=== PATIENT | male | born 1950 | race Caucasian/White ===

== ENCOUNTER → 2016-08-29 | Outpatient (CLI) | payer BC ==
[~2016-08-29] MED LIST: ASPUNK PO; ATOR-24 PO; EZET10TA63 PO; OMEG10007 PO; TRAM-10 PO
[2016-08-29 12:55] LABS: ALT/SGPT 161 U/L (12-78); AST/SGOT 63 U/L (15-37); BLOOD UREA NITROGEN 12 mg/dl (7-18); BUN/CREATININE RATIO 10.2 (10-20); CALCIUM 9.1 mg/dl (8.5-10.1); CARBON DIOXIDE 27 mmol/L (21-32); CHLORIDE 102 mmol/L (98-107); CHOLESTEROL 119 mg/dl (0-200); GLUCOSE 117 mg/dl (70-99); POTASSIUM 3.8 mmol/L (3.5-5.1); SODIUM 139 mmol/L (136-145); TRIGLYCERIDES 118 mg/dl (0-150); VERY LOW DENSITY LIPOPROT CALC 24 mg/dl
[2016-08-29 12:57] LABS: ALB/GLOB RATIO 1.3 (0.9-2); ALKALINE PHOSPHATASE 76 U/L (45-117); CHOLESTEROL/HDL RATIO 2.1; HDL CHOLESTEROL 57 mg/dl; LDL CHOLESTEROL CALCULATED 38 mg/dl
[2016-08-29 13:30] LABS: ESTIMATED AVERAGE GLUCOSE 146 mg/dl; HA1C FLAG Normal (Normal)
== END | disposition home or self-care (01) ==
LOC: C.LABPBG 10:13
PROVIDERS: ATTEND Nurse Practitioner Family
DX: E11.9 Type 2 diabetes mellitus without complications (principal); E78.00 Pure hypercholesterolemia, unspecified; I10 Essential (primary) hypertension; R74.8 Abnormal levels of other serum enzymes; K76.0 Fatty (change of) liver, not elsewhere classified; Z87.891 Personal history of nicotine dependence

== ENCOUNTER → 2017-03-02 | Outpatient (CLI) | payer BC ==
[2017-03-02 12:20] LABS: BASO % 0.7 %; BASO ABS # 0.05 K/uL (0-0.2); COMPLETE YES; EOS % 6.7 %; HEMATOCRIT 46.9 % (42-52); IG% 0.3 %; LYMPH % 35.1 %; LYMPH ABS # 2.67 K/uL (1.2-3.4); MEAN CELL VOLUME 87.8 fL (80-100); MEAN CORPUSCULAR HEMOGLOBIN 29.2 pg (25-34); MEAN CORPUSCULAR HGB CONC 33.3 g/dl (32-36); MEAN PLATELET VOLUME 11.5 fL (7.4-10.4); MONO % 7.4 %; NEUT % 49.8 %; PLATELET COUNT 217 K/uL (130-400); RED BLOOD COUNT 5.34 M/uL (4.7-6.1); WHITE BLOOD COUNT 7.61 K/uL (4.8-10.8)
[2017-03-02 13:00] LABS: ALT/SGPT 168 U/L (12-78); AST/SGOT 55 U/L (15-37); BLOOD UREA NITROGEN 13 mg/dl (7-18); BUN/CREATININE RATIO 11.7 (10-20); CALCIUM 9.2 mg/dl (8.5-10.1); CARBON DIOXIDE 27 mmol/L (21-32); CHLORIDE 105 mmol/L (98-107); GLUCOSE 103 mg/dl (70-99); MAGNESIUM 2.1 mg/dl (1.8-2.4); POTASSIUM 3.8 mmol/L (3.5-5.1); SODIUM 139 mmol/L (136-145)
[2017-03-02 13:01] LABS: RATIO 4.6 mcg/mg (0-30.0)
[2017-03-02 13:05] LABS: ALB/GLOB RATIO 1.2 (0.9-2); ALKALINE PHOSPHATASE 70 U/L (45-117); CHOLESTEROL 150 mg/dl (0-200); CHOLESTEROL/HDL RATIO 2.9; ESTIMATED AVERAGE GLUCOSE 140 mg/dl; HA1C FLAG Normal (Normal); HDL CHOLESTEROL 52 mg/dl; LDL CHOLESTEROL CALCULATED 65 mg/dl; TRIGLYCERIDES 164 mg/dl (0-150); VERY LOW DENSITY LIPOPROT CALC 33 mg/dl
== END | disposition home or self-care (01) ==
LOC: C.LABPBG 09:12
PROVIDERS: ATTEND Nurse Practitioner Family
DX: E11.9 Type 2 diabetes mellitus without complications (principal); E78.00 Pure hypercholesterolemia, unspecified; I73.9 Peripheral vascular disease, unspecified; I70.8 Atherosclerosis of other arteries; I10 Essential (primary) hypertension; K76.0 Fatty (change of) liver, not elsewhere classified

== ENCOUNTER 2017-07-18 18:11 | Observation (INO) | payer BC ==
[~2017-07-18] VITALS: Ht 185.4 cm; Wt 100.9 kg
[2017-07-18] MEDS ORDERED: SODIUM CHLORIDE 0.9% 500ML 500 ML IV STA (19:08)
[2017-07-18] MEDS ORDERED: MoRPHine SULFATE 10 MG/ML CARP/VIAL IV STA (19:11)
[2017-07-18] MEDS ORDERED: ONDANSETRON INJ 2 MG/ML 2 ML VIAL IV STA (19:11)
[2017-07-18] MEDS ORDERED: ASPI81TA28 PO (19:24)
[2017-07-18] MEDS ORDERED: TRIA37.5 PO (19:24)
[2017-07-18] MEDS ORDERED: PSYL48.59 PO (19:24)
[2017-07-18] MEDS ORDERED: OMEG10002 PO (19:24)
[2017-07-18] MEDS ORDERED: CALC500T83 PO (19:24)
[2017-07-18] MEDS ORDERED: GLUCTAB18 PO (19:24)
[2017-07-18] MEDS ORDERED: CLOP1TAB15 PO (19:24)
[2017-07-18] MEDS ORDERED: MULT-506 PO (19:24)
[2017-07-18] MEDS ORDERED: METF-384 PO (19:24)
[2017-07-18 19:59] LABS: BASO % 0.4 %; BASO ABS # 0.04 K/uL (0-0.2); COMPLETE YES; EOS % 1.3 %; HEMATOCRIT 43.1 % (42-52); IG% 0.3 %; LYMPH % 16.9 %; LYMPH ABS # 1.84 K/uL (1.2-3.4); MEAN CELL VOLUME 86.7 fL (80-100); MEAN CORPUSCULAR HEMOGLOBIN 30.4 pg (25-34); MEAN PLATELET VOLUME 11.4 fL (7.4-10.4); MONO % 6.8 %; NEUT % 74.3 %; PLATELET COUNT 191 K/uL (130-400); RED BLOOD COUNT 4.97 M/uL (4.7-6.1)
[2017-07-18 20:13] LABS: URINE APPEARANCE CLEAR (CLEAR); URINE BILIRUBIN NEG (NEG); URINE COLOR YELLOW; URINE NITRITE NEG (NEG); URINE PH 6.5 (4.5-7.5); URINE SPECIFIC GRAVITY 1.019 (1.000-1.030); UROBILINOGEN NEG (NEG); ZZUR CULT IF INDIC CLEAN CATCH NO
[2017-07-18 20:14] LABS: MANUAL MICROSCOPIC REQUIRED? NO; REVIEW REQ? NO
[2017-07-18 20:21] LABS: BUN/CREATININE RATIO 10.8 (10-20); CALCIUM 9.5 mg/dl (8.5-10.1); CREATININE 1.34 mg/dl (0.60-1.40); POTASSIUM 4.1 mmol/L (3.5-5.1)
[2017-07-18 20:24] LABS: ALB/GLOB RATIO 1.2 (0.9-2)
--- NOTE | 2017-07-18 20:25 | DIAGNOSTIC IMAGING REPORT ---
CT OF THE ABDOMEN AND PELVIS WITHOUT CONTRAST, STONE PROTOCOL CLINICAL HISTORY: Right flank pain. COMPARISON STUDY: CT of the abdomen and pelvis October 01, 2010 and right upper quadrant ultrasound November 22, 2015. TECHNIQUE: Helical axial images of the abdomen and pelvis were obtained without IV or oral contrast according to renal stone protocol. A dose lowering technique was utilized adhering to the principles of ALARA. FINDINGS: A 5 mm mid right ureteral calculus located at the S2 level results in moderate right hydroureteronephrosis with moderate perinephric infiltration. No left ureteral calculi are identified. There are multiple nonobstructing left renal calculi. A water attenuation right renal lesion likely reflects a cyst. Evaluation of the remainder of the abdomen and pelvis is suboptimal on this unenhanced exam. Fatty infiltration of the liver is noted. The spleen, adrenal glands and pancreas are unremarkable with exception of numerous pancreatic parenchymal calcifications. There is no evidence for a bowel obstruction. Caliber and wall thickness of small and large bowel are normal. There are tiny calculi within the dependent aspect of the bladder. No lymphadenopathy is present. There are no suspicious osseous lesions. A right-sided aortofemoral graft is suboptimally assessed on this unenhanced exam. IMPRESSION: 1. 5 mm mid right ureteral calculus which results in moderate right hydroureteronephrosis with perinephric infiltration. 2. Left-sided nephrolithiasis. 3. Fatty liver. 4. Punctate bladder calculi. Electronically signed by: Sam Landon M.D. 07/18/2017 8:24 PM Dictated Date/Time: 07/18/2017 8:15 PM
[2017-07-18] MEDS ORDERED: MoRPHine SULFATE 4 MG/ML 1 ML CARP\\VIAL IV STA (20:38)
--- NOTE | 2017-07-18 20:54 | EMERGENCY ROOM VISIT NOTE ---
History First contact with patient: 18:55 Chief Complaint: FLANK PAIN Stated Complaint: SEVERE PAIN R SIDE AND BACK History of Present Illness The patient is a 66 year old male who presents to the Emergency Room via private vehicle accompanied by female with complaints of "severe pain right side and back". The patient states that this afternoon around 3 PM he developed abrupt onset of sharp pain in the right flank. He also has decreased urine output despite increasing his by mouth fluid intake. He states that his urine was dark and believes that there was blood in it. He denies vomiting but does note intermittent nausea. He rates the overall pain as an 8/10. He does have a history of kidney stones in the past. He did have hydrocodone at 4 PM without relief. Pain is better with standing. Review of Systems A complete 10-point Review of Systems was discussed with the patient, with pertinent positives and negatives listed in the History of Present Illness. All remaining Review of Systems questions can be considered negative unless otherwise specified. Past Medical/Surgical History Renal calculi, Fem artery bypass in 2010 Family History No pertinent. Social History Smoking Status: Never Smoker Pt. lives locally Current/Historical Medications Scheduled Aspirin (Aspirin Ec), 81 MG PO QAM Atorvastatin (Lipitor), 40 MG PO DAILY Calcium (Calcium), 500 MG PO DAILY Clopidogrel (Plavix), 75 MG PO DAILY Glucosamine-Chondroitin (Osteo Bi-Flex Regular Str), 1 DOSE PO DAILY Metformin Hcl (Glucophage), 1,000 MG PO BID Multivitamin (Multivitamin), 1 TAB PO DAILY [place]-3 Fatty Acids (Fish Oil), 3,000 MG PO DAILY Psyllium (Metamucil), 1 DOSE PO DAILY Tramadol (Ultram), 50 MG PO Q4-6HR PRN Triamterene/Hctz (Dyazide 37.5MG/25MG), 1 TAB PO DAILY Physical Exam Vital Signs Date Time Temp Pulse Resp B/P (MAP) Pulse Ox O2 Delivery O2 Flow Rate FiO2 07/18/17 21:23 Room Air 07/18/17 20:25 79 18 161/79 96 Room Air 07/18/17 20:25 95 Room Air 07/18/17 19:57 63 18 154/111 99 Room Air 07/18/17 18:17 36.8 86 20 160/104 99 Room Air Physical Exam VITAL SIGNS - Vital signs and nursing notes were reviewed. Stable. Hypertensive. GENERAL - 66-year-old male appearing his stated age who is in no acute distress but does appear to be experiencing pain. Communicates well with provider and answers questions appropriately. SKIN - Without rashes. HEAD - NC/AT. EYES - Sclera anicteric. EARS - No deformities of external structures noted on gross examination bilaterally. LUNGS - Chest wall symmetric without accessory muscle use, intercostals retractions, or central cyanosis. Normal vesicular breath sounds CTA B/L. No wheezes, rales, or rhonchi appreciated. CARDIAC - RRR with S1/S2. No murmur, rubs, or gallops appreciated. ABDOMEN - Abdominal contour normal without pulsations or visible masses. R CVA tenderness noted. Generalized lower abdominal tenderness R>L. No groin tenderness. Medical Decision & Procedures ER Provider Diagnostic Interpretation: CT OF THE ABDOMEN AND PELVIS WITHOUT CONTRAST, STONE PROTOCOL CLINICAL HISTORY: Right flank pain. COMPARISON STUDY: CT of the abdomen and pelvis October 01, 2010 and right upper quadrant ultrasound November 22, 2015. TECHNIQUE: Helical axial images of the abdomen and pelvis were obtained without IV or oral contrast according to renal stone protocol. A dose lowering technique was utilized adhering to the principles of ALARA. FINDINGS: A 5 mm mid right ureteral calculus located at the S2 level results in moderate right hydroureteronephrosis with moderate perinephric infiltration. No left ureteral calculi are identified. There are multiple nonobstructing left renal calculi. A water attenuation right renal lesion likely reflects a cyst. Evaluation of the remainder of the abdomen and pelvis is suboptimal on this unenhanced exam. Fatty infiltration of the liver is noted. The spleen, adrenal glands and pancreas are unremarkable with exception of numerous pancreatic parenchymal calcifications. There is no evidence for a bowel obstruction. Caliber and wall thickness of small and large bowel are normal. There are tiny calculi within the dependent aspect of the bladder. No lymphadenopathy is present. There are no suspicious osseous lesions. A right-sided aortofemoral graft is suboptimally assessed on this unenhanced exam. IMPRESSION: 1. 5 mm mid right ureteral calculus which results in moderate right hydroureteronephrosis with perinephric infiltration. 2. Left-sided nephrolithiasis. 3. Fatty liver. 4. Punctate bladder calculi. Electronically signed by: Sam Landon M.D. 07/18/2017 8:24 PM Dictated Date/Time: 07/18/2017 8:15 PM Laboratory Results 07/18/17 19:48 Red Blood Count 4.97, Mean Corpuscular Volume 86.7, Mean Corpuscular Hemoglobin 30.4, Mean Corpuscular Hemoglobin Concent 35.0, Mean Platelet Volume 11.4, Neutrophils (%) (Auto) 74.3, Lymphocytes (%) (Auto) 16.9, Monocytes (%) (Auto) 6.8, Eosinophils (%) (Auto) 1.3, Basophils (%) (Auto) 0.4, Neutrophils # (Auto) 8.11, Lymphocytes # (Auto) 1.84, Monocytes # (Auto) 0.74, Eosinophils # (Auto) 0.14, Basophils # (Auto) 0.04 07/18/17 19:48 Test 07/18/17 19:48 White Blood Count 10.90 K/uL (4.8-10.8) Red Blood Count 4.97 M/uL (4.7-6.1) Hemoglobin 15.1 g/dL (14.0-18.0) Hematocrit 43.1 % (42-52) Mean Corpuscular Volume 86.7 fL (80-100) Mean Corpuscular Hemoglobin 30.4 pg (25-34) Mean Corpuscular Hemoglobin Concent 35.0 g/dl (32-36) Platelet Count 191 K/uL (130-400) Mean Platelet Volume 11.4 fL (7.4-10.4) Neutrophils (%) (Auto) 74.3 % Lymphocytes (%) (Auto) 16.9 % Monocytes (%) (Auto) 6.8 % Eosinophils (%) (Auto) 1.3 % Basophils (%) (Auto) 0.4 % Neutrophils # (Auto) 8.11 K/uL (1.4-6.5) Lymphocytes # (Auto) 1.84 K/uL (1.2-3.4) Monocytes # (Auto) 0.74 K/uL (0.11-0.59) Eosinophils # (Auto) 0.14 K/uL (0-0.5) Basophils # (Auto) 0.04 K/uL (0-0.2) RDW Standard Deviation 40.5 fL (36.4-46.3) RDW Coefficient of Variation 12.6 % (11.5-14.5) Immature Granulocyte % (Auto) 0.3 % Immature Granulocyte # (Auto) 0.03 K/uL (0.00-0.02) Urine Color YELLOW Urine Appearance CLEAR (CLEAR) Urine pH 6.5 (4.5-7.5) Urine Specific [place] 1.019 (1.000-1.030) Urine Protein NEG (NEG) Urine Glucose (UA) NEG (NEG) Urine Ketones NEG (NEG) Urine Occult Blood 3+ (NEG) Urine Nitrite NEG (NEG) Urine Bilirubin NEG (NEG) Urine Urobilinogen NEG (NEG) Urine Leukocyte Esterase TRACE (NEG) Urine WBC (Auto) 1-5 /hpf (0-5) Urine RBC (Auto) >30 /hpf (0-4) Urine Hyaline Casts (Auto) 0 /lpf (0-5) Urine Epithelial Cells (Auto) 5-10 /lpf (0-5) Urine Bacteria (Auto) NEG (NEG) Anion Gap 8.0 mmol/L (3-11) Est Creatinine Clear Calc Drug Dose 69.5 ml/min Estimated GFR () 64.4 Estimated GFR (Non- 55.6 BUN/Creatinine Ratio 10.8 (10-20) Calcium Level 9.5 mg/dl (8.5-10.1) Magnesium Level 2.0 mg/dl (1.8-2.4) Total Bilirubin 0.4 mg/dl (0.2-1) Aspartate Amino Transf (AST/SGOT) 75 U/L (15-37) Alanine Aminotransferase (ALT/SGPT) 222 U/L (12-78) Alkaline Phosphatase 80 U/L (45-117) Total Protein 7.3 gm/dl (6.4-8.2) Albumin 4.0 gm/dl (3.4-5.0) Globulin 3.3 gm/dl (2.5-4.0) Albumin/Globulin Ratio 1.2 (0.9-2) Hepatitis C Antibody Screen NEG (NEG) Medications Administered Medications (Trade) Dose Ordered Sig/Rosi Route Start Time Stop Time Status Last Admin Dose Admin Sodium Chloride 500 ml @ 999 mls/hr Q31M STAT IV 07/18/17 19:08 07/18/17 19:39 DC 07/18/17 19:53 999 MLS/HR Morphine Sulfate (MoRPHine SULFATE INJ) 10 mg NOW STAT IV 07/18/17 19:11 07/18/17 19:12 DC 07/18/17 19:54 10 MG Ondansetron HCl (Zofran Inj) 4 mg NOW STAT IV 07/18/17 19:11 07/18/17 19:12 DC 07/18/17 19:53 4 MG Morphine Sulfate (MoRPHine SULFATE INJ) 4 mg NOW STAT IV 07/18/17 20:38 07/18/17 20:40 DC 07/18/17 20:43 4 MG Medical Decision Patient was seen and evaluated as above. He presents to us today with right flank pain. He does have a history of renal calculi. I suspect this on exam. He was given 10 mg of morphine for pain and then went to the CT scanner. This does reveal a 5 mm stone on the right side with moderate hydronephrosis and swelling of the kidney. He responded well to the morphine but did have hydrocodone prior to arrival. Urine reveals blood but no evidence of infection. Minor leukocytosis. Metabolic panel reveals slight hyponatremia. Creatinine 1.34. AST and ALT elevated. Patient is aware of this and notes he has followed with a liver specialist in the past. Urine reveals 3+ occult blood. Trace leuks. Creatine 30 red blood cells. 5-10 epithelial cells. The patient at this time does still appear to be in a good deal of pain and the patient prefers to stand the hospital rather than returning home secondary to the amount of pain he has experienced. I do believe this is reasonable. Please refer to further documentation regarding his stay. In evaluation treatment this patient following differential diagnoses were entertained: Renal calculi, dissection, pyelonephritis, among others. Impression Primary Impression: Right flank pain Additional Impression: Ureteral stone with hydronephrosis Departure Information Dispostion Admitted as an inpatient Condition FAIR Referrals Brandie Vazquez DO (PCP) Patient Instructions My [facility] Problem Qualifiers
[2017-07-18 21:23] VITALS: Ht 185.4 cm; Wt 100.9 kg
[2017-07-18] MEDS ORDERED: ACETAMINOPHEN 325 MG TAB PO PRN (21:30)
[2017-07-18] MEDS ORDERED: ALUMINUM/MAGNESIUM/SIMETH (MAALOX MAX) 30 ML UDC PO PRN (21:30)
[2017-07-18] MEDS ORDERED: HYDROmorphone INJ 1 MG/ML SYR IV PRN (21:30)
[2017-07-18] MEDS ORDERED: ZOLPIDEM TARTRATE 5 MG TAB PO PRN (21:30)
[2017-07-18] MEDS ORDERED: POLYETHYLENE (MIRALAX) 17 GM PACK PO PRN (21:30)
[2017-07-18] MEDS ORDERED: ONDANSETRON INJ 2 MG/ML 2 ML VIAL IV PRN (21:30)
[2017-07-18] MEDS ORDERED: MAGNESIUM HYDROXIDE SUSP 30 ML UDC PO PRN (21:30)
--- NOTE | 2017-07-18 21:53 | History and Physical ---
History & Physical Date & Time of Service: Jul 18, 2017 at 21:38 Chief Complaint: Severe Pain R Side And Back Primary Care Physician: Brandie Vazquez DO History of Present Illness Source: patient 66 y/o M Hx HTN, HPL, DM II, LFT abnormalities, nephrolithiasis 25 yrs ago. Developed sudden onset of R flank pain this afternoon. The pain was severe and he presented to the hospital therefore. A CT abdomen/pelvis revealed a 5mm right ureteral calculus with moderate right hydroureteronephrosis and perinephric infiltration. He denies any fevers or rigors. Past Medical/Surgical History 1) Type II DM 2) HTN 3) HPL 4) Fatty liver 5) Nephrolithiasis - passed a stone spontaneously 25 yrs ago Family History Both parents in 70s owing to CAD Social History Does not smoke or drink - retired [employer] Smoking Status: Former Smoker Immunizations History of Influenza Vaccine: Yes Influenza Vaccine Date: Aug 31, 2010 History of Tetanus Vaccine?: Yes Tetanus Immunization Date: Jun 26, 2010 History of Pneumococcal: Yes Pneumococcal Date: Jun 26, 2010 History of Hepatitis B Vaccine: No Multi-Drug Resistant Organisms History of MDRO: No Allergies Coded Allergies: Lisinopril (Verified Allergy, Intermediate, "DISORIENTED", 07/18/17) Home Medications Scheduled Aspirin (Aspirin Ec), 81 MG PO QAM Atorvastatin (Lipitor), 40 MG PO DAILY Calcium (Calcium), 500 MG PO DAILY Clopidogrel (Plavix), 75 MG PO DAILY Glucosamine-Chondroitin (Osteo Bi-Flex Regular Str), 1 DOSE PO DAILY Metformin Hcl (Glucophage), 1,000 MG PO BID Multivitamin (Multivitamin), 1 TAB PO DAILY [place]-3 Fatty Acids (Fish Oil), 3,000 MG PO DAILY Psyllium (Metamucil), 1 DOSE PO DAILY Tramadol (Ultram), 50 MG PO Q4-6HR PRN Triamterene/Hctz (Dyazide 37.5MG/25MG), 1 TAB PO DAILY Review of Systems Constitutional: No fever, No chills, No sweats Eyes: No worsening of vision ENT: + hearing loss (chronic) Respiratory: No cough, No sputum, No wheezing Cardiovascular: No chest pain Abdomen: + pain, + problem reported (R flank pain) Musculoskeletal: No joint pain Genitourinary - Male: No hematuria Neurologic: No memory loss, No paralysis Psychiatric: No depression symptoms Endocrine: No fatigue Hematologic / Lymphatic: No abnormal bleeding/bruising Integumentary: No rash Allergic / Immunologic: No environmental allergies Physical Exam Vital Signs Date Time Temp Pulse Resp B/P (MAP) Pulse Ox O2 Delivery O2 Flow Rate FiO2 07/18/17 21:23 Room Air 07/18/17 20:25 79 18 161/79 96 Room Air 07/18/17 19:57 63 18 154/111 99 Room Air 07/18/17 18:17 36.8 86 20 160/104 99 Room Air General Appearance: WD/WN Head: normocephalic Eyes: normal inspection ENT: normal ENT inspection, pharynx normal Neck: supple, no JVD Respiratory/Chest: chest non-tender, lungs clear, normal breath sounds Cardiovascular: no edema, no gallop Abdomen/GI: normal bowel sounds, non tender, soft, + pertinent finding Genitourinary - Male: + pertinent finding (R flank pain) Back: normal inspection, no CVA tenderness 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, no motor/sensory deficits, alert, oriented x 3 Skin: normal color Diagnostics Laboratory Results Results Past 24 Hours Test 07/18/17 19:48 07/18/17 21:23 07/18/17 21:26 Range/Units White Blood Count 10.90 4.8-10.8 K/uL Red Blood Count 4.97 4.7-6.1 M/uL Hemoglobin 15.1 14.0-18.0 g/dL Hematocrit 43.1 42-52 % Mean Corpuscular Volume 86.7 80-100 fL Mean Corpuscular Hemoglobin 30.4 25-34 pg Mean Corpuscular Hemoglobin Concent 35.0 32-36 g/dl Platelet Count 191 130-400 K/uL Mean Platelet Volume 11.4 7.4-10.4 fL Neutrophils (%) (Auto) 74.3 % Lymphocytes (%) (Auto) 16.9 % Monocytes (%) (Auto) 6.8 % Eosinophils (%) (Auto) 1.3 % Basophils (%) (Auto) 0.4 % Neutrophils # (Auto) 8.11 1.4-6.5 K/uL Lymphocytes # (Auto) 1.84 1.2-3.4 K/uL Monocytes # (Auto) 0.74 0.11-0.59 K/uL Eosinophils # (Auto) 0.14 0-0.5 K/uL Basophils # (Auto) 0.04 0-0.2 K/uL RDW Standard Deviation 40.5 36.4-46.3 fL RDW Coefficient of Variation 12.6 11.5-14.5 % Immature Granulocyte % (Auto) 0.3 % Immature Granulocyte # (Auto) 0.03 0.00-0.02 K/uL Urine Color YELLOW Urine Appearance CLEAR CLEAR Urine pH 6.5 4.5-7.5 Urine Specific [place] 1.019 1.000-1.030 Urine Protein NEG NEG Urine Glucose (UA) NEG NEG Urine Ketones NEG NEG Urine Occult Blood 3+ NEG Urine Nitrite NEG NEG Urine Bilirubin NEG NEG Urine Urobilinogen NEG NEG Urine Leukocyte Esterase TRACE NEG Urine WBC (Auto) 1-5 0-5 /hpf Urine RBC (Auto) >30 0-4 /hpf Urine Hyaline Casts (Auto) 0 0-5 /lpf Urine Epithelial Cells (Auto) 5-10 0-5 /lpf Urine Bacteria (Auto) NEG NEG Sodium Level 134 136-145 mmol/L Potassium Level 4.1 3.5-5.1 mmol/L Chloride Level 100 98-107 mmol/L Carbon Dioxide Level 26 21-32 mmol/L Anion Gap 8.0 3-11 mmol/L Blood Urea Nitrogen 15 7-18 mg/dl Creatinine 1.34 0.60-1.40 mg/dl Est Creatinine Clear Calc Drug Dose 69.5 ml/min Estimated GFR () 64.4 Estimated GFR (Non- 55.6 BUN/Creatinine Ratio 10.8 10-20 Random Glucose 112 70-99 mg/dl Calcium Level 9.5 8.5-10.1 mg/dl Total Bilirubin 0.4 0.2-1 mg/dl Aspartate Amino Transf (AST/SGOT) 75 15-37 U/L Alanine Aminotransferase (ALT/SGPT) 222 12-78 U/L Alkaline Phosphatase 80 45-117 U/L Total Protein 7.3 6.4-8.2 gm/dl Albumin 4.0 3.4-5.0 gm/dl Globulin 3.3 2.5-4.0 gm/dl Albumin/Globulin Ratio 1.2 0.9-[address] abdomen/pelvis: 1. 5 mm mid right ureteral calculus which results in moderate right hydroureteronephrosis with perinephric infiltration. 2. Left-sided nephrolithiasis. 3. Fatty liver. 4. Punctate bladder calculi. Impression Assessment and Plan 66 y/o M Hx HTN, HPL, DM II, LFT abnormalities, nephrolithiasis 25 yrs ago. Developed sudden onset of R flank pain this afternoon. The pain was severe and he presented to the hospital therefore. A CT abdomen/pelvis revealed a 5mm right ureteral calculus with moderate right hydroureteronephrosis and perinephric infiltration. He denies any fevers or rigors. He has required a high dose of narcotics for adequate pain control. 1) Obstructing R ureteral calculus - will provide pain control and fluids pending evaluation by urology. He does not currently appear to have an infection. 2) DM - placed on SS - Metformin held 3) HTN - we have held his Diazide pending assessment for possible procedure. 4) LFT elevation - this is likely due to SELBY seen on imaging - he had been following with a liver specialist and had stopped when his LFTs returned t normal - would likely benefit from resuming follow-up in addition to diet/ exercise. 5) HPL - cont Statin Full code - SCDs pending AM assessment total time for this admit including review of labs, meds, imaging, records - discussion with pt and ER attending 35 min Level of Care Med/Surg Advanced Directives Existing Living Will: No Existing Power of Outpatient Therapist: No Resuscitation Status FULL RESUSCITATION VTE Prophylaxis VTE Risk Assessment Done? Y/N: Yes Risk Level: Low Given or contraindicated: SCD's
[2017-07-18 22:04] VITALS: O2SAT 93
[2017-07-18] MEDS ORDERED: IV FLUIDS COMPLETED PRN (22:45)
[2017-07-18] MEDS ORDERED: DEXTROSE 50% 50 ML SYR IV PRN (23:00)
[2017-07-18] MEDS ORDERED: GLUCOSE 10 TABS/TUBE PO PRN (23:00)
[2017-07-18] MEDS ORDERED: GLUCAGON FOR INJ 1 MG VIAL SQ PRN (23:00)
[2017-07-18] MEDS ORDERED: GLUCOSE 40% GEL 15 GM TUBE PO PRN (23:00)
[2017-07-18] MEDS: SODIUM CHLORIDE 0.9% 1000ML 1,000 ML IV SCH (23:31)
[2017-07-19] MEDS: INSULIN ASPART 100 UNITS/ML 3 ML PEN SC SCH ×3 (06:00→12:00)
[2017-07-19 07:56] VITALS: BP 99/64; PULSE 75; TEMP 36.5; O2SAT 95
[2017-07-19] MEDS ORDERED: ATORVASTATIN 20 MG TAB PO SCH (08:00)
[2017-07-19] MEDS ORDERED: CLOPIDOGREL BISULFATE 75 MG TAB PO SCH (08:00)
[2017-07-19] MEDS ORDERED: INFLUENZA ADMINISTRATION CHARGE ONE (08:00)
[2017-07-19] MEDS ORDERED: PSYLLIUM 58.6% PWD PACK S\\F PO SCH (08:00)
[2017-07-19] MEDS ORDERED: INFLUENZA VIRUS QUAD VACCINE 0.5 ML SYR IM. ONE (08:00)
[2017-07-19] MEDS: SODIUM CHLORIDE 0.9% 1000ML 1,000 ML IV SCH (09:22)
--- NOTE | 2017-07-19 13:18 | Urology Consultation ---
History General Date of Service: Jul 19, 2017. Chief Complaint: Stone Primary Care Physician: Brandie Vazquez, DO Pt seen a urologist before?: Yes If yes, why?: Stone a number of years ago. Passed History of Present Illness Patient presented with severe flank pain and urgency with discomfort and poor voiding and urinary issues. Radiated to groin in waves with major pain. Has since improved. Currently able to tolerate pain except for spasms when voiding which are moderate at times. Resting comfortable. Tolerating hydration. No fevers > No nausea Laboratory Labs were reviewed and are within normal limits unless listed below. Labs are available in the chart and at [facility] Problem List Medical Problems: (1) Right flank pain Status: Acute (2) Ureteral stone with hydronephrosis Status: Acute Past History diabetes, kidney stones Past Surgical History: other Additional Comments: hernia Family History Patient reports no known family medical history. Social History Hx Tobacco Use In Past Year?: No (QUIT 2 YEARS AGO) Immunizations History of Influenza Vaccine: Yes Influenza Vaccine Date: Aug 31, 2010 History of Tetanus Vaccine?: Yes Tetanus Immunization Date: Jun 26, 2010 History of Pneumococcal: Yes Pneumococcal Date: Jun 26, 2010 History of Hepatitis B Vaccine: No History of MDRO No Allergies Coded Allergies: Lisinopril (Verified Allergy, Intermediate, "DISORIENTED", 07/18/17) Medications Home Medications: Home Meds and Scripts Medications Dose Route/Sig Max Daily Dose Days Date Category Dose Instructions Osteo Bi-Flex Regular Str (Glucosamine-Chondroitin) 1 Tab Tab 1 Dose PO DAILY 07/18/17 Reported Metamucil (Psyllium) 48.57 % Pow 1 Dose PO DAILY 07/18/17 Reported Multivitamin (Multivitamins) Tab 1 Tab PO DAILY 07/18/17 Reported Calcium 500 Mg Tab 500 Mg PO DAILY 07/18/17 Reported Dyazide 37.5MG/25MG (Triamterene/HCTZ) Cap 1 Tab PO DAILY 07/18/17 Reported Plavix (Clopidogrel Bisulfate) 75 Mg Tab 75 Mg PO DAILY 07/18/17 Reported Glucophage (Metformin Hcl) 1,000 Mg Tab 1,000 Mg PO BID 07/18/17 Reported Aspirin Ec (Aspirin) 81 Mg Tab 81 Mg PO QAM 07/18/17 Reported Fish Oil ([place]-3 Fatty Acids) 1,000 Mg Cap 3,000 Mg PO DAILY 07/18/17 Reported Ultram (Tramadol HCl) 50 Mg Tab 50 Mg PO Q4-6HR PRN 09/02/10 Reported PRN PAIN Lipitor (Atorvastatin Calcium) 40 Mg Tab 40 Mg PO DAILY 08/26/10 Reported Inpatient Medications: Current Inpatient Medications Medications (Trade) Dose Ordered Sig/Rosi Route Start Time Stop Time Status Last Admin Dose Admin Acetaminophen (Tylenol Tab) 650 mg Q4H PRN PO 07/18/17 21:30 08/17/17 21:29 Al Hydrox/Mg Hydrox/Simethicone (Maalox Max Susp) 15 ml Q4H PRN PO 07/18/17 21:30 08/17/17 21:29 Magnesium Hydroxide (Milk Of Magnesia Susp) 30 ml Q6H PRN PO 07/18/17 21:30 08/17/17 21:29 Polyethylene (Miralax Powder Packet) 17 gm DAILY PRN PO 07/18/17 21:30 08/17/17 21:29 Zolpidem Tartrate (Ambien Tab) 5 mg HSZ PRN PO 07/18/17 21:30 08/17/17 21:29 Ondansetron HCl (Zofran Inj) 4 mg Q6H PRN IV 07/18/17 21:30 08/17/17 21:29 Atorvastatin Calcium (Lipitor Tab) 40 mg DAILY PO 07/19/17 08:00 08/18/17 08:59 07/19/17 09:23 40 MG Clopidogrel Bisulfate (plAVix TAB) 75 mg DAILY PO 07/19/17 08:00 08/18/17 08:59 07/19/17 09:23 75 MG Psyllium Hydrophilic Mucilloid (Metamucil Powder) 1 pkt DAILY PO 07/19/17 08:00 08/18/17 08:59 Sodium Chloride 1,000 ml @ 100 mls/hr Q10H IV 07/18/17 21:30 07/19/17 17:29 07/19/17 09:22 100 MLS/HR Hydromorphone HCl (Dilaudid Inj) 1 mg Q3H PRN IV 07/18/17 21:30 08/01/17 21:29 Insulin Aspart (novoLOG ASPART) SLIDING SCALE G... Q6 SC 07/19/17 00:00 08/18/17 00:00 Miscellaneous (Iv Fluids Completed) 1 ea PRN PRN N/A 07/18/17 22:45 07/18/18 22:44 Glucose (Glucose 40% Gel) 15-30 GRAMS 15 GRAMS... UD PRN PO 07/18/17 23:00 08/17/17 22:59 Glucose (Glucose Chew Tab) 4-8 Tablets 4 Tabl... UD PRN PO 07/18/17 23:00 08/17/17 22:59 Dextrose (Dextrose 50% 50ML Syringe) 25-50ML OF 50% DW IV FOR... UD PRN IV 07/18/17 23:00 08/17/17 22:59 Glucagon (Glucagon Inj) 1 mg UD PRN SQ 07/18/17 23:00 08/17/17 22:59 Review of Systems Review of Systems All Other Systems: Reviewed and Negative Additional Comments: All reviewed. Pertienent positives and negatives in HPI Physical Exam Vital Signs: Vital Signs Past 12 Hours Date Time Temp Pulse Resp B/P (MAP) Pulse Ox O2 Delivery O2 Flow Rate FiO2 07/19/17 08:00 Room Air 07/19/17 07:56 36.5 75 20 99/64 (29) 95 Physical Exam: General Appearance: WD/WN, no apparent distress Eyes: bilateral eyes normal inspection ENT: normal ENT inspection Neck: supple, no JVD Respiratory/Chest: no respiratory distress, no accessory muscle use Cardiovascular: regular rate, rhythm Gastrointestinal: Abdomen: normal abdomen Bladder: normal bladder Renal: normal renal Extremities: normal range of motion, non-tender, normal inspection, no pedal edema, no calf tenderness 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 Ureteral Stone 2. LUTS 3. Nephrolithaisis Plan to continue maximum expulsion therapy after discussing with patient. Will order diet. Will need flomax, toradol, pyridium, and pain meds for home and plan to wait 1-2 weeks to see if able to pass. Call if any fevers or other problems. Continue to hydrate regularly. Will monitor. If unable to pass, may need stent. Otherwise continue pain control and conservative management.
[2017-07-19 15:11] VITALS: BP 118/70; PULSE 80; TEMP 36.6; O2SAT 92
[2017-07-19] MEDS ORDERED: TAMS0.4C38 PO ×2 (15:15→15:33)
[2017-07-19] MEDS ORDERED: PHEN-775 PO ×2 (15:17→15:33)
[2017-07-19] MEDS ORDERED: KETO10TA PO ×2 (15:18→15:33)
[2017-07-19] MEDS ORDERED: TRAM-10 PO (15:22)
--- NOTE | 2017-07-19 15:25 | Discharge Instructions ---
Discharge Instructions Date of Service Jul 19, 2017. Admission Reason for Admission: Ureteral Stone With Hydronephrosis Discharge Discharge Diagnosis / Problem: R reteral stone with hydronephrosis Discharge Goals Goal(s): Decrease discomfort, Improve function Activity Recommendations Activity Limitations: resume your previous activity . Instructions / Follow-Up Instructions / Follow-Up 1. Ureteral Stone 2. Nephrolithaisis Plan to continue maximum expulsion therapy after discussing with patient. Will order diet. Will need flomax, toradol, pyridium, and pain meds for home and plan to wait 1- 2 weeks to see if able to pass. Call if any fevers or other problems. Continue to hydrate regularly. Will monitor. If unable to pass, may need stent. Otherwise continue pain control and conservative management. Current Hospital Diet Patient's current hospital diet: AHA Diet (Heart Healthy) Discharge Diet Recommended Diet: AHA Diet (Heart Healthy) Pending Studies Studies pending at discharge: no Medical Emergencies . Who to Call and When: Medical Emergencies: If at any time you feel your situation is an emergency, please call 911 immediately. . Non-Emergent Contact Non-Emergency issues call your: Primary Care Provider Call Non-Emergent contact if: your pain is not controlled . . "Provider Documentation" section prepared by Kwan Mccann. . VTE Core Measure Inpt VTE Proph given/why not?: SCD's
--- NOTE | 2017-07-19 15:26 | Discharge Summary ---
Discharge Summary Date of Service Jul 19, 2017. Discharge Summary Admission Date: Jul 18, 2017 at 21:25 Discharge Date: Jul 19, 2017 Immunizations: Have You Had Influenza Vaccine: Yes Influenza Vaccine Date: Aug 31, 2010 History of Tetanus Vaccine?: Yes Tetanus Immunization Date: Jun 26, 2010 History of Pneumococcal: Yes Pneumococcal Date: Jun 26, 2010 History of Hepatitis B Vaccine: No Hospital Course This includes examination of the patient, discharge planning, medication reconciliation, and communication with other providers. Discharge Instructions Please refer to the electronic Patient Visit Report (Discharge Instructions) for additional information.
[2017-07-19 15:47] VITALS: BP 118/70; PULSE 80; TEMP 36.6; O2SAT 92
== END 2017-07-19 16:20 | disposition home or self-care (01) ==
LOC: C.EDB 18:12 → C.4E 21:25 → ENRESERV 21:51
PROVIDERS: ADMIT Internal Medicine; ATTEND Internal Medicine
DX: N13.2 Hydronephrosis with renal and ureteral calculous obstruction (principal); E11.9 Type 2 diabetes mellitus without complications; Z87.891 Personal history of nicotine dependence; Z79.82 Long term (current) use of aspirin; Z79.84 Long term (current) use of oral hypoglycemic drugs; Z79.899 Other long term (current) drug therapy

== ENCOUNTER → 2017-08-25 | Outpatient (CLI) | payer OTHER ==
[~2017-08-25] MED LIST changes: +ASPI81TA28 PO; -ASPUNK PO; +CALC500T83 PO; +CLOP1TAB15 PO; -EZET10TA63 PO; +GLUCTAB18 PO; +KETO10TA PO; +METF-384 PO; +MULT-506 PO; +OMEG10002 PO; -OMEG10007 PO; +PHEN-775 PO; +PSYL48.59 PO; +TAMS0.4C38 PO; +TRIA37.5 PO
--- NOTE | 2017-08-25 14:50 | DIAGNOSTIC IMAGING REPORT ---
KUB HISTORY: Kidney stones. COMPARISON: KUB 10/14/2010. Abdomen and pelvis CT 07/18/2017. FINDINGS: The bowel gas pattern is unremarkable. There are no dilated loops of small bowel to suggest an obstruction. Multiple left renal calculi with the largest measuring 5 mm. No right renal calculi. There is a 4 mm calcification within the right deep pelvis which likely resides within the ureterovesical junction. Remaining calcifications in the deep pelvis are stable and are consistent with phleboliths. No pneumoperitoneum or pneumatosis. IMPRESSION: 1. A 4 mm calcification within the right deep pelvis which likely resides within the ureterovesical junction. 2. Stable left-sided nephrolithiasis. Electronically signed by: Chan Salgado M.D. 08/25/2017 2:49 PM Dictated Date/Time: 08/25/2017 2:46 PM
== END | disposition home or self-care (01) ==
LOC: C.RAD 13:49
PROVIDERS: ATTEND Urology
DX: N40.1 Benign prostatic hyperplasia with lower urinary tract symptoms (principal)

== ENCOUNTER → 2017-09-04 | Outpatient (CLI) | payer OTHER ==
[2017-09-04 12:47] LABS: BASO % 0.5 %; BASO ABS # 0.04 K/uL (0-0.2); EOS % 7.1 %; EOS ABS # 0.57 K/uL (0-0.5); HEMATOCRIT 46.5 % (42-52); HEMOGLOBIN 15.9 g/dL (14.0-18.0); IG# 0.03 K/uL (0.00-0.02); LYMPH % 28.7 %; LYMPH ABS # 2.32 K/uL (1.2-3.4); MEAN CELL VOLUME 86.9 fL (80-100); MEAN CORPUSCULAR HEMOGLOBIN 29.7 pg (25-34); MEAN CORPUSCULAR HGB CONC 34.2 g/dl (32-36); MEAN PLATELET VOLUME 11.5 fL (7.4-10.4); MONO % 8.3 %; MONO ABS # 0.67 K/uL (0.11-0.59); NEUT ABS # 4.44 K/uL (1.4-6.5); PLATELET COUNT 248 K/uL (130-400); RED CELL DISTRIBUTION WIDTH CV 12.8 % (11.5-14.5); RED CELL DISTRIBUTION WIDTH SD 40.8 fL (36.4-46.3); WHITE BLOOD COUNT 8.07 K/uL (4.8-10.8)
[2017-09-04 13:19] LABS: ALBUMIN 4.1 gm/dl (3.4-5.0); ALT/SGPT 202 U/L (12-78); BLOOD UREA NITROGEN 13 mg/dl (7-18); CALCIUM 9.5 mg/dl (8.5-10.1); CARBON DIOXIDE 28 mmol/L (21-32); CHOLESTEROL 102 mg/dl (0-200); CREATININE 1.12 mg/dl (0.60-1.40); GLUCOSE 124 mg/dl (70-99); HEMOGLOBIN A1C 6.6 % (4.5-5.6); POTASSIUM 3.7 mmol/L (3.5-5.1); SODIUM 135 mmol/L (136-145)
[2017-09-04 13:22] LABS: ALKALINE PHOSPHATASE 74 U/L (45-117); AST/SGOT 79 U/L (15-37); LDL CHOLESTEROL CALCULATED 32 mg/dl; TOTAL PROTEIN 7.6 gm/dl (6.4-8.2)
== END | disposition home or self-care (01) ==
LOC: C.LABPBG 09:39
PROVIDERS: ATTEND Nurse Practitioner Family
DX: E11.9 Type 2 diabetes mellitus without complications (principal); E78.00 Pure hypercholesterolemia, unspecified; K76.0 Fatty (change of) liver, not elsewhere classified; I70.8 Atherosclerosis of other arteries; I73.9 Peripheral vascular disease, unspecified; I10 Essential (primary) hypertension

== ENCOUNTER 2019-01-26 12:26 | Observation (INO) ==
[2019-01-26] MEDS ORDERED: SODIUM CHLORIDE 0.9% 500 ML IV SCH (12:45)
[2019-01-26 13:10] LABS: Basophils # (auto) 0.04 K/uL (0-0.2); Basophils % (auto) 0.5 %; Eosinophils # (auto) 0.38 K/uL (0-0.5); Eosinophils % (auto) 5.2 %; Hematocrit (blood only) 44.6 % (42-52); Hemoglobin 15.5 g/dL (14.0-18.0); Immature Granulocytes # (auto) 0.03 K/uL (0.00-0.02); Immature Granulocytes % (auto) 0.4 %; Lymphocytes # (auto) 1.69 K/uL (1.2-3.4); Lymphocytes % (auto) 23.2 %; Mean Corpuscular Hgb Conc 34.8 g/dL (32-36); Mean Platelet Volume 10.9 fL (7.4-10.4); Monocytes # (auto) 0.69 K/uL (0.11-0.59); Monocytes % (auto) 9.5 %; Neutrophils # (auto) 4.45 K/uL (1.4-6.5); Neutrophils % (auto) 61.2 %; Platelet Count 204 K/uL (130-400); RDW Coefficient of Variation 12.5 % (11.5-14.5); RDW Standard Deviation 38.8 fL (36.4-46.3); Red Blood Count 5.25 M/uL (4.7-6.1); White Blood Count 7.28 K/uL (4.8-10.8)
--- NOTE | 2019-01-26 13:22 | XRay Report ---
XR chest 1V portable CLINICAL HISTORY: weakness COMPARISON STUDY: No previous studies for comparison. FINDINGS: The bones soft tissues and hemidiaphragms are normal. The cardiomediastinal silhouette is n ormal. The lungs are clear. The pulmonary vasculature is normal. IMPRESSION: Negative chest. The above report was generated using voice recognition software. It may contain grammatical, syntax or spelling errors. Electronically signed by: Osiel Morris M.D. 01/26/2019 1:21 PM
[2019-01-26 13:28] LABS: Alanine Aminotransferase 190 U/L (12-78); Albumin Level 3.9 gm/dl (3.4-5.0); Aspartate Aminotransferase 62 U/L (15-37); BUN Creatinine Ratio 12.8 (10-20); Blood Urea Nitrogen 14 mg/dl (7-18); Calcium 9.6 mg/dl (8.5-10.1); Carbon Dioxide 29 mmol/L (21-32); Chloride 101 mmol/L (98-107); Creatinine Clr Calc Pharmacy 80.4 ml/min; Est GFR (African American) 78.1; Est GFR (Non-African American) 67.4; Glucose 145 mg/dl (70-99); Potassium 3.6 mmol/L (3.5-5.1); Sodium 136 mmol/L (136-145)
--- NOTE | 2019-01-26 13:31 | Emergency Department Note ---
Entered by Flora Spence acting as a scribe for Joaquin Swain MD History of Present Illness General Chief complaint: Arrhythmia/Palpitations Stated complaint: IRREGULAR HEART BEAT Time Seen by Provider: 01/26/19 12:34 Source: patient History of Present Illness Onset (ago): hour(s) (a few hours ago) Location: chest (Arrythmia) Severity: similar to prior episodes Pain Consistency: + other (Persistent) Quality: + other (Arrythmia) Exacerbated By: + medication (Augmentin) and + movement Associated symptoms: + nausea/vomiting (Positive nausea. Negative vomiting.), + shortness of breath, + weakness and + other (Dizziness); no chest pain and no fever/chills The patient is a 68 year old male presenting to the Emergency Department complaining of persistent arrhythmia starting a few hours ago. The patient reports that he was at a follow up appointment with his [facility] where he had an EKG done. He explains that there were changes on his EKG and he was then referred to the ED. He states that he feels weak and fatigued. He notes that he has been experiencing intermittent shortness of breath and nausea. He adds that when he exerts himself he gets dizzy. The patient reports that he has experienced these symptoms before, as he came to the ED 5 days ago and was diagnosed with Vertigo. He states that he was prescribed Augmentin and Meclizine and has been taking the medications since with the exception of today. He explains that he did not feel fatigued before he started taking the Augmentin. The patient denies chest pain, cough, fever, chills and any history of lung disease. Home Medications Home Medications Medication Instructions Recorded Confirmed Type aspirin [Aspirin Low Dose] 81 mg PO QAM 06/03/18 01/26/19 History atorvastatin 40 mg PO QAM 06/03/18 01/26/19 History calcium carbonate [Calcium 500] 500 mg PO QPM 06/03/18 01/26/19 History calcium citrate-vitamin D3 1 tab PO QAM 06/03/18 01/26/19 History [Citracal Regular] clopidogrel 75 mg PO QPM 06/03/18 01/26/19 History glucosamine-chondroitin [Osteo 1 tab PO QAM 06/03/18 01/26/19 History Bi-Flex] losartan 50 mg PO QPM 06/03/18 01/26/19 History metformin 1,000 mg PO BID 06/03/18 01/26/19 History multivitamin 1 tab PO QAM 06/03/18 01/26/19 History psyllium 1 tbsp PO QAM 06/03/18 01/26/19 History triamterene-hydrochlorothiazid 1 cap PO QAM 06/03/18 01/26/19 History [Dyazide] amoxicillin-pot clavulanate 1 tab PO BID 9 Days #18 tab 01/21/19 01/26/19 Rx [Augmentin] meclizine 25 mg PO TID PRN #30 tab 01/21/19 01/26/19 Rx omega 1-pmq-zec-fish oil 1,000 mg 3 cap PO QAM cap 01/26/19 01/26/19 History (120 mg-180 mg) capsule Allergies Allergy/AdvReac Type Severity Reaction Status Date / Time amlodipine [From [facility]] Allergy Intermediate legs/feet Verified 01/26/19 13:27 swelling lisinopril Allergy Intermediate "DISORIENTE Verified 01/26/19 13:27 D" Past Med/Surg History Medical History Side effect of drug (Acute) Abnormal EKG (Acute) Vertigo (Acute) Diabetes mellitus, type 2 Fatty liver disease, nonalcoholic Hearing deficit Hyperlipidemia Hypertension Kidney stones On anticoagulant therapy plavix Peripheral arterial disease Surgical History History of colonoscopy History of endarterectomy 2010 @ [facility] Left common iliac with abdominal aortic endartectomy History of removal of cyst right knee History of right inguinal hernia repair History of tooth extraction all teeth removed Family History Mother Family history of diabetes mellitus Social History Preferred Language: Nicaraguan Communication Ability: Effective Beliefs That Will Affect Care: None Current Living Situation: Spouse Feels Safe at Home: Yes Smoking Status: Former smoker Tobacco Type: cigarettes Second Hand Exposure: Yes (both parents smoked) Hx Alcohol Use: Yes Alcohol type: wine Hx Substance Use: No Review of Systems See HPI for pertinent positives & negatives. and A total of 10 systems reviewed and were otherwise negative Physical Exam Vital Signs Vital Signs - 24 hr 01/26/19 12:26 01/26/19 12:30 01/26/19 12:41 Temperature 36.6 C Temperature Source Oral Sepsis Recent Fever Within 48 Hours No Sepsis New/Unexplained Change in Mental Status No Sepsis Action Taken by Nursing No Action Required Pulse Rate 109 H Pulse Rate [Apical] Pulse Rate from SpO2 Sensor Respiratory Rate 18 Respiratory Depth Normal Blood Pressure 151/89 H Blood Pressure [Left Arm] Blood Pressure Mean 109 Blood Pressure Mean [Left Arm] Pulse Oximetry 98 94 98 Oxygen Delivery Method Room Air Room Air Room Air 01/26/19 12:49 01/26/19 13:00 01/26/19 13:37 Temperature Temperature Source Sepsis Recent Fever Within 48 Hours Sepsis New/Unexplained Change in Mental Status Sepsis Action Taken by Nursing Pulse Rate 97 H 92 H 89 Pulse Rate [Apical] Pulse Rate from SpO2 Sensor Respiratory Rate 17 17 19 Respiratory Depth Blood Pressure 129/79 Blood Pressure [Left Arm] Blood Pressure Mean 95 Blood Pressure Mean [Left Arm] Pulse Oximetry Oxygen Delivery Method 01/26/19 13:38 01/26/19 14:00 01/26/19 15:00 Temperature Temperature Source Sepsis Recent Fever Within 48 Hours Sepsis New/Unexplained Change in Mental Status Sepsis Action Taken by Nursing Pulse Rate 92 H 85 76 Pulse Rate [Apical] 75 Pulse Rate from SpO2 Sensor 86 Respiratory Rate 15 19 14 Respiratory Depth Blood Pressure 129/79 Blood Pressure [Left Arm] 128/72 Blood Pressure Mean 95 Blood Pressure Mean [Left Arm] 90 Pulse Oximetry 92 Oxygen Delivery Method Nasal CPAP 01/26/19 15:09 Temperature Temperature Source Sepsis Recent Fever Within 48 Hours Sepsis New/Unexplained Change in Mental Status Sepsis Action Taken by Nursing Pulse Rate Pulse Rate [Apical] Pulse Rate from SpO2 Sensor Respiratory Rate 18 Respiratory Depth Blood Pressure Blood Pressure [Left Arm] 131/84 Blood Pressure Mean Blood Pressure Mean [Left Arm] 99 Pulse Oximetry 96 Oxygen Delivery Method GENERAL: Patient is in no acute distress. HEENT: No acute trauma, normocephalic atraumatic, mucous membranes moist, no nasal congestion, no scleral icterus. NECK: No stridor, no adenopathy, no meningismus, trachea is midline. LUNGS: Crackles at right base with diminished breath sounds on the right. Left lung is clear. No wheezing. HEART: Tachycardic rate with regular rhythm. No murmurs. ABDOMEN: Soft, nontender, bowel sounds positive, no hernias, no peritonitis. EXTREMITIES: No cyanosis or edema, full range of motion of all the joints without pain or difficulty, no signs for acute trauma. NEUROLOGIC: Oriented x 3, no acute motor or sensory deficits, no focal weakness. No pronator drift or cerebellar dysfunction. No speech slur. SKIN: No rash, no jaundice, no diaphoresis. Course 1232: The patient was seen in the ED on 01/21/19 and evaluated by Linnette Olvera for dizziness. He was diagnosed with Vertigo and discharged with Augmentin and Meclizine. The patient was referred to the ED today. 1235: The patient was evaluated in room B11B, and a complete history and physical examination were performed. 1344: I reevaluated the patient at this time and we discussed his possible disposition. 1347: I discussed the patients case with Dr. Missy ALEJO hospitalist. He will evaluate the patient for further management. Consultations Consultation #1: I discussed the patients case with Dr. Missy ALEJO hospitalist. He will evaluate the patient for further management. Time: 13:47 Administered Medications Discontinued Medications Sodium Chloride (Nss) 500 mls @ 999 mls/hr IV .Q31M ABIEL Stop: 01/26/19 13:15 Last Infusion: 01/26/19 14:16 Dose: 0 mls/hr Documented by: [id number] Admin: 01/26/19 13:38 Dose: 999 mls/hr Documented by: [id number] Ceftriaxone Sodium 2,000 mg/ (Dextrose) 70 mls @ 100 mls/hr IV NOW STA Stop: 01/26/19 14:23 Last Infusion: 01/26/19 15:00 Dose: 0 mls/hr Documented by: [id number] Admin: 01/26/19 14:16 Dose: 100 mls/hr Documented by: [id number] Medical Decision Making Differential Diagnosis Differentials include A-Fib or A-flutter, SVT, dehydration, pneumonia, sepsis, electrolyte imbalance, anemia, vertigo, stroke and AK among others. Medical Records Attestation: I reviewed the patient's medical records. Home Medications Current Medication List: was personally reviewed by me Laboratory Data Attestation: I reviewed the patient's lab results. Result diagrams: 01/26/19 12:53 01/26/19 12:53 Lab Results 01/26/19 01/26/19 01/26/19 Range/Units 12:53 12:53 12:53 WBC 7.28 (4.8-10.8) K/uL RBC 5.25 (4.7-6.1) M/uL Hgb 15.5 (14.0-18.0) g/dL Hct 44.6 (42-52) % MCV 85.0 (80-100) fL MCH 29.5 (25-34) pg MCHC 34.8 (32-36) g/dL RDW Std Deviation 38.8 (36.4-46.3) fL RDW Coeff of Laci 12.5 (11.5-14.5) % Plt Count 204 (130-400) K/uL MPV 10.9 H (7.4-10.4) fL Immature Gran % (Auto) 0.4 % Neut % (Auto) 61.2 % Lymph % (Auto) 23.2 % [place] % (Auto) 9.5 % Eos % (Auto) 5.2 % Baso % (Auto) 0.5 % Immature Gran # (Auto) 0.03 H (0.00-0.02) K/uL Neut # (Auto) 4.45 (1.4-6.5) K/uL Lymph # (Auto) 1.69 (1.2-3.4) K/uL [place] # (Auto) 0.69 H (0.11-0.59) K/uL Eos # (Auto) 0.38 (0-0.5) K/uL Baso # (Auto) 0.04 (0-0.2) K/uL Sodium 136 (136-145) mmol/L Potassium 3.6 (3.5-5.1) mmol/L Chloride 101 (98-107) mmol/L Carbon Dioxide 29 (21-32) mmol/L Anion Gap 6.0 (3-11) BUN 14 (7-18) mg/dl Creatinine 1.13 (0.6-1.4) mg/dl Est Cr Clr Drug Dosing 80.4 ml/min Est GFR ( Amer) 78.1 Est GFR (Non-Af Amer) 67.4 BUN/Creatinine Ratio 12.8 (10-20) Glucose 145 H (70-99) mg/dl Lactate 1.7 (0.4-2.0) mmol/L Calcium 9.6 (8.5-10.1) mg/dl Magnesium 2.0 (1.8-2.4) mg/dl Total Bilirubin 0.5 (0.2-1) mg/dl AST 62 H (15-37) U/L ALT 190 H (12-78) U/L Alkaline Phosphatase 81 (45-117) U/L Troponin I < 0.015 (0-0.045) ng/ml Total Protein 7.5 (6.4-8.2) gm/dl Albumin 3.9 (3.4-5.0) gm/dl Globulin 3.6 (2.5-4.0) gm/dl Albumin/Globulin Ratio 1.1 (0.9-2) TSH 2.630 (0.300-4.500) uIu/ml Lyme Disease IgG Ab (Negative) Lyme Disease IgM Ab (Negative) 01/26/19 Range/Units 12:55 WBC (4.8-10.8) K/uL RBC (4.7-6.1) M/uL Hgb (14.0-18.0) g/dL Hct (42-52) % MCV (80-100) fL MCH (25-34) pg MCHC (32-36) g/dL RDW Std Deviation (36.4-46.3) fL RDW Coeff of Laci (11.5-14.5) % Plt Count (130-400) K/uL MPV (7.4-10.4) fL Immature Gran % (Auto) % Neut % (Auto) % Lymph % (Auto) % [place] % (Auto) % Eos % (Auto) % Baso % (Auto) % Immature Gran # (Auto) (0.00-0.02) K/uL Neut # (Auto) (1.4-6.5) K/uL Lymph # (Auto) (1.2-3.4) K/uL [place] # (Auto) (0.11-0.59) K/uL Eos # (Auto) (0-0.5) K/uL Baso # (Auto) (0-0.2) K/uL Sodium (136-145) mmol/L Potassium (3.5-5.1) mmol/L Chloride (98-107) mmol/L Carbon Dioxide (21-32) mmol/L Anion Gap (3-11) BUN (7-18) mg/dl Creatinine (0.6-1.4) mg/dl Est Cr Clr Drug Dosing ml/min Est GFR ( Amer) Est GFR (Non-Af Amer) BUN/Creatinine Ratio (10-20) Glucose (70-99) mg/dl Lactate (0.4-2.0) mmol/L Calcium (8.5-10.1) mg/dl Magnesium (1.8-2.4) mg/dl Total Bilirubin (0.2-1) mg/dl AST (15-37) U/L ALT (12-78) U/L Alkaline Phosphatase (45-117) U/L Troponin I (0-0.045) ng/ml Total Protein (6.4-8.2) gm/dl Albumin (3.4-5.0) gm/dl Globulin (2.5-4.0) gm/dl Albumin/Globulin Ratio (0.9-2) TSH (0.300-4.500) uIu/ml Lyme Disease IgG Ab Negative (Negative) Lyme Disease IgM Ab Negative (Negative) Imaging Data Radiologist's Impression: Radiology results as stated below per my review and the radiologist's interpretation: XR chest 1V portable CLINICAL HISTORY: weakness COMPARISON STUDY: No previous studies for comparison. FINDINGS: The bones soft tissues and hemidiaphragms are normal. The cardiomediastinal silhouette is normal. The lungs are clear. The pulmonary vasculature is normal. IMPRESSION: Negative chest. The above report was generated using voice recognition software. It may contain grammatical, syntax or spelling errors. Electronically signed by: Osiel Morris M.D. 01/26/2019 1:21 PM ECG Data Attestation: I personally reviewed and interpreted this ECG as follows: Indication: SOB/dyspnea and weakness Rate (beats per minute): 98 Rhythm: normal sinus Findings: + other (T wave flattening.) and + ST depression (Subtle ST depression in anterior and lateral leads.) Comparison ECG Date: from (01/21/19) Change: the following changes noted (ST changes and T wave flattening are new. ) Blood Pressure Blood Pressure Findings: Normal blood pressure Blood Pressure Disposition: further management by hospitalist [facility] Narrative There is no leukocytosis or concerning anemia. No significant electrolyte abnormality or kidney failure. Lactic acid level is not elevated making sepsis less likely. There is some elevation to the AST and ALT, the patient has a history of the same. No evidence for issues with the patient's thyroid. EKG shows a sinus rhythm with some ST and T wave changes in the anterior lateral leads. Cardiac enzyme testing x1 is not consistent with acute cardiac injury. Chest x-ray does not show pneumonia or CHF. On exam, there were no focal neurologic deficits. The patient was not febrile. Patient received a 500 cc saline bolus, he was given 2 g of IV ceftriaxone for the possible sinusitis noted on his last visit. The patient presents with weakness, some shortness of breath and fatigue. He does appear to have vertigo based on history. His EKG is clearly changed compared to just a few days ago, I do not feel comfortable with discharge. I do think monitoring and a cardiology consult is warranted. I did speak to the patient and renal case manager. The on-call hospitalist was consulted. Impression & Plan Acute electrocardiogram changes, Vertigo, Weakness, Acute sinusitis Discharge Plan Visit Data Chief Complaint: Arrhythmia/Palpitations Stated Complaint: IRREGULAR HEART BEAT ED Provider: Joaquin Swain Discharge Problem: Acute electrocardiogram changes, Vertigo, Weakness, Acute sinusitis Patient Disposition: Being Evaluated by Hospitalist Forms Stand Alone Forms: My [facility] Prescriptions Prescriptions: No Action omega 9-mob-yhp-fish oil [Fish Oil] 1,000 mg (120 mg-180 mg) capsule 3 cap PO QAM RF: 0 losartan 50 mg Tablet 50 mg PO QPM RF: 0 calcium citrate-vitamin D3 [Citracal Regular] 250 mg calcium- 200 unit Tablet 1 tab PO QAM RF: 0 multivitamin Tablet 1 tab PO QAM RF: 0 atorvastatin 40 mg Tablet 40 mg PO QAM RF: 0 clopidogrel 75 mg Tablet 75 mg PO QPM RF: 0 aspirin [Aspirin Low Dose] 81 mg Tablet,Delayed Release (Dr/Ec) 81 mg PO QAM RF: 0 triamterene-hydrochlorothiazid [Dyazide] 37.5-25 mg Capsule 1 cap PO QAM RF: 0 calcium carbonate [Calcium 500] 500 mg calcium (1,250 mg) Tablet 500 mg PO QPM RF: 0 psyllium Powder 1 tbsp PO QAM RF: 0 metformin 1,000 mg Tablet 1,000 mg PO BID RF: 0 glucosamine-chondroitin [Osteo Bi-Flex] 250-200 mg Tablet 1 tab PO QAM RF: 0 amoxicillin-pot clavulanate [Augmentin] 875-125 mg tablet 1 tab PO BID 9 Days Qty: 18 RF: 0 meclizine 25 mg tablet 25 mg PO TID PRN (Reason: dizziness) Qty: 30 RF: 0 Referrals Referrals: Brandie Vazquez DO [Primary Care Provider] - Discharge Problem: Acute sinusitis Qualifiers: Sinusitis location: unspecified location Recurrence: not specified as recurrent Qualified Code(s): J01.90 - Acute sinusitis, unspecified The scribe's documentation has been prepared under my direction and personally reviewed by me in its entirety. I confirm that the note above accurately reflects all work, treatment, procedures, and medical decision making performed by me.
[2019-01-26 13:39] LABS: Albumin Globulin Ratio 1.1 (0.9-2); Alkaline Phosphatase 81 U/L (45-117); Bilirubin,Total 0.5 mg/dl (0.2-1); Globulin 3.6 gm/dl (2.5-4.0); Total Protein 7.5 gm/dl (6.4-8.2); Troponin I < 0.015 ng/ml (0-0.045)
[2019-01-26] MEDS ORDERED: cefTRIAXone SODIUM 2,000 MG in DEXTROSE 5% 50 ML IV STA (13:42)
[2019-01-26 14:44] LABS: Lyme Ab IgG w/WB Rflx Negative (Negative); Lyme Ab IgM w/WB Rflx Negative (Negative)
--- NOTE | 2019-01-26 14:57 | History & Physical Report ---
Date of Service January 26, 2019 Assessment & Plan (1) Abnormal EKG: Observation with telemetry. Obtain cardiac echo. Consult cardiology. Await Lyme titer results Present on Admission?: Yes (2) Vertigo: Brain MRI scan ordered. Consult neurology. Continue meclizine as needed Present on Admission?: Yes (3) Side effect of drug: Apparent sedation side effects from meclizine History of Present Illness Chief Complaint: Persistent vertigo, weakness, abnormal EKG Primary Care Provider: Brandie Vazquez DO 68-year-old male who has been treated with meclizine and Augmentin for the past week for vertigo. He has had sedation side effects from the Antivert. Today he was evaluated by his physician and had an EKG done because of apparent extra beats on examination. The EKG revealed new ST wave changes as compared to his previous EKG. The patient has been complaining of fatigue and weakness but denies any chest pain or actually feeling palpitations. Chest x-ray is clear. Lyme titers are pending. Troponin is normal. He will be placed in observation for further assessment with cardiac echo and brain MRI scan. Cardiology consultation and neurological consultation have been requested. Allergies Allergy/AdvReac Type Severity Reaction Status Date / Time amlodipine [From [facility]] Allergy Intermediate legs/feet Verified 01/26/19 13:27 swelling lisinopril Allergy Intermediate "DISORIENTE Verified 01/26/19 13:27 D" Home Medications Home Medications Medication Instructions Recorded Confirmed Type aspirin [Aspirin Low Dose] 81 mg PO QAM 06/03/18 01/26/19 History atorvastatin 40 mg PO QAM 06/03/18 01/26/19 History calcium carbonate [Calcium 500] 500 mg PO QPM 06/03/18 01/26/19 History calcium citrate-vitamin D3 1 tab PO QAM 06/03/18 01/26/19 History [Citracal Regular] clopidogrel 75 mg PO QPM 06/03/18 01/26/19 History glucosamine-chondroitin [Osteo 1 tab PO QAM 06/03/18 01/26/19 History Bi-Flex] losartan 50 mg PO QPM 06/03/18 01/26/19 History metformin 1,000 mg PO BID 06/03/18 01/26/19 History multivitamin 1 tab PO QAM 06/03/18 01/26/19 History psyllium 1 tbsp PO QAM 06/03/18 01/26/19 History triamterene-hydrochlorothiazid 1 cap PO QAM 06/03/18 01/26/19 History [Dyazide] amoxicillin-pot clavulanate 1 tab PO BID 9 Days #18 tab 01/21/19 01/26/19 Rx [Augmentin] meclizine 25 mg PO TID PRN #30 tab 01/21/19 01/26/19 Rx omega 7-quo-ytn-fish oil 1,000 mg 3 cap PO QAM cap 01/26/19 01/26/19 History (120 mg-180 mg) capsule Past Med/Surg History Medical History Diabetes mellitus, type 2 Fatty liver disease, nonalcoholic Hearing deficit Hyperlipidemia Hypertension Kidney stones On anticoagulant therapy plavix Peripheral arterial disease Surgical History History of colonoscopy History of endarterectomy 2010 @ [facility] Left common iliac with abdominal aortic endartectomy History of removal of cyst right knee History of right inguinal hernia repair History of tooth extraction all teeth removed Family History Mother Family history of diabetes mellitus Social History Preferred Language: Tanzanian Communication Ability: Effective Beliefs That Will Affect Care: None Current Living Situation: Spouse Feels Safe at Home: Yes Smoking Status: Former smoker Tobacco Type: cigarettes Second Hand Exposure: Ye s (both parents smoked) Hx Alcohol Use: Yes Alcohol type: wine Hx Substance Use: No Review of Systems Review of Systems: Constitutional-no fever or chills. Generalized weakness ENT-no blurred vision, no double vision, no epistaxis, no sore throat Respiratory-no cough, no wheezing, no shortness of breath Cardiac-no palpitations, no chest pain, no syncope GI-no nausea, vomiting, diarrhea, melena, hematochezia -no urinary retention, no urinary incontinence, no dysuria, no hematuria Musculoskeletal-no joint pain, no muscle tenderness Skin-no bruising, no rashes, no pruritus Neuro-generalized weakness and fatigue. Sedation Psych-no depression, no anxiety Physical Exam Physical Exam: General-mildly sedated but oriented x3, no fevers, no chills HEENT-head atraumatic and normocephalic, TMs intact bilaterally, pupils equal and reactive to light, extraocular muscles intact Neck-no lymphadenopathy or thyromegaly, trachea midline Chest-clear to auscultation percussion. No rales wheezing or rhonchi Cardiac-regular rate and rhythm, normal S1 and S2, no murmurs Abdomen-normal bowel sounds, nontender, no hepatosplenomegaly Extremities-no cyanosis, clubbing, or edema Neuro-cranial nerves II through XII intact, motor and sensory function within normal limits, strength symmetrical 5/5, no focal deficits Psych-normal affect, normal mood Results & Data Vital Signs (Past 12 Hours) Vital Signs Temp Pulse Resp BP Pulse Ox 01/26/19 13:37 89 19 129/79 01/26/19 13:00 92 H 17 01/26/19 12:49 97 H 17 01/26/19 12:41 98 01/26/19 12:30 36.6 C 109 H 18 151/89 H 94 01/26/19 12:26 98 Laboratory Results 01/26/19 12:53 01/26/19 12:53 PG Care Time/CCT Total # of Minutes Spent Total Time Spent with Patient: Total time spent is greater than 50% in coordination of care (as documented) at patient's floor/unit and/or counseling patient:
[2019-01-26] MEDS ORDERED: ALUMINUM/MAGNESIUM SUSP 30 ML UDC PO PRN (16:45)
[2019-01-26] MEDS ORDERED: MECLIZINE HCL 25 MG TAB PO PRN (16:45)
[2019-01-26] MEDS ORDERED: ONDANSETRON INJ 2 MG/ML 2 ML VIAL IV PRN (16:45)
[2019-01-26] MEDS ORDERED: ACETAMINOPHEN 325 MG TAB PO PRN (16:45)
--- NOTE | 2019-01-26 18:11 | Magnetic Resonance Report ---
MR brain wo con CLINICAL HISTORY: 68 years-old Male presenting with Persistent vertigo. TECHNIQUE: Multisequence, multiplanar MR imaging of the brain was performed without the use of intrav enous contrast. IV contrast: None. COMPARISON: Noncontrast CT head from 01/21/2019. FINDINGS: Localizer images: Unremarkable. Normal midline sagittal structures. Ventricles and sulci normal in size. No restricted diffusion or h emorrhage. Brain parenchyma normal in appearance with preserved chairez-white differentiation. No mass e ffect or midline shift. No extra-axial fluid collection. T2 skull base flow voids preserved. Bone marrow signal intensity within the calvarium within normal limits. Mucosal thickening in paranas al sinuses. IMPRESSION: 1. No acute intracranial abnormality. Electronically signed by: Ag Davis M.D. 01/26/2019 6:10 PM
[2019-01-26] MEDS: INSULIN ASPART 100 UNITS/ML 3 ML PEN SC SCH ×2 (18:30→21:11)
[2019-01-26 18:54] LABS: INR 1.1 (0.9-1.1); Partial Thromboplastin Time 27.4 Seconds (21.0-31.0); Prothrombin Time 10.8 Seconds (9.0-12.0)
[2019-01-26] MEDS: SODIUM CHLORIDE 0.9% 1000ML 1,000 ML IV SCH (18:57)
[2019-01-26] MEDS: AMOXICILLIN/CLAVULANATE 875 MG TAB PO SCH (18:58)
[2019-01-26] MEDS ORDERED: ENOXAPARIN INJ 40 MG/0.4 ML SYR SQ SCH (20:00)
[2019-01-26] MEDS ORDERED: CLOPIDOGREL BISULFATE 75 MG TAB PO SCH (21:00)
[2019-01-26] MEDS ORDERED: CALCIUM CARBONATE 500 MG CHEWABLE TAB PO SCH (21:00)
[2019-01-26] MEDS ORDERED: LOSARTAN POTASSIUM 50 MG TAB PO SCH (21:00)
[2019-01-27] MEDS: SODIUM CHLORIDE 0.9% 1000ML 1,000 ML IV SCH (07:09)
[2019-01-27] MEDS ORDERED: METFORMIN HCL 500 MG TAB PO SCH (08:00)
[2019-01-27] MEDS: AMOXICILLIN/CLAVULANATE 875 MG TAB PO SCH (08:20)
[2019-01-27] MEDS: INSULIN ASPART 100 UNITS/ML 3 ML PEN SC SCH ×2 (08:45→12:11)
[2019-01-27] MEDS ORDERED: CALCIUM 600MG + VIT D 400 IU TAB PO SCH (09:00)
[2019-01-27] MEDS ORDERED: PSYLLIUM 58.6% POWDER PACKET PO SCH (09:00)
[2019-01-27] MEDS ORDERED: ATORVASTATIN 40 MG TAB PO SCH (09:00)
[2019-01-27] MEDS ORDERED: ASPIRIN 81 MG ECTAB PO SCH (09:00)
[2019-01-27] MEDS ORDERED: TRIAMTERENE/HCTZ 37.5/25MG CAP PO SCH (09:00)
[2019-01-27] MEDS ORDERED: OMEGA-3 (PURIFIED FISH OIL) 1 GM CAP PO SCH (09:00)
[2019-01-27] MEDS ORDERED: NON-FORMULARY MEDICATION (Glucosamine-Chondroitin [Osteo Bi-Flex] 1 TAB) PO SCH (09:00)
[2019-01-27] MEDS ORDERED: MULTIVITAMIN TAB PO SCH (09:00)
--- NOTE | 2019-01-27 09:25 | Neurology Consultation ---
Date of Consultation January 27, 2019 Assessment & Plan (1) BPPV (benign paroxysmal positional vertigo): This patient's reported symptoms seem most consistent with resolving benign positional paroxysmal vertigo for which he was evaluated in our emergency department on January 21, 2019. He is currently asymptomatic and has an intact neurological examination. I was unable to elicit any nystagmus or symptoms with the Full[place]-Hallpike maneuver this morning. There is no evidence of acute or subacute infarct on the recently completed brain MRI. It would probably be worthwhile to obtain a CT angiogram of the head and neck to exclude vertebrobasilar insufficiency which may also present with vertigo but would typically have other associated brainstem symptoms such as diplopia, dysarthria, or focal weakness of the limbs. I agree with meclizine for symptomatic management of vertigo. If his symptoms were to recur it may also be worthwhile to refer him to physical therapy for Leon maneuvers. History of Present Illness Reason for Consultation: Vertigo Requesting Physician: Jair Louis MD Attending Physician: Kavon Barry MD History of Present Illness The patient is a 68-year-old male with a chief complaint of vertigo. He complains of an intense spinning sensation that began acutely 6 days ago and occurred while lying back and turning his head to the side. He reports associated nausea and vomiting at that time. He denies experiencing any diplopia, dysarthria, focal weakness, sensory loss, or drop attack. He denies experiencing any associated headache or neck pain. He was seen in the emergency department at that time and diagnosed with probable benign positional paroxysmal vertigo. He was given a prescription for meclizine and Augmentin. He reports that his symptoms have improved considerably since that time. The patient had a follow-up appointment with his primary care physician yesterday and had an EKG completed which revealed some changes including sinus tachycardia, moderate T wave abnormality, and possibly anterolateral ischemia. The patient was referred to the emergency department for further assessment. He was complaining of a feeling of weakness, fatigue, shortness of breath, and nausea. A follow-up EKG did not reveal any significant abnormalities and a cardiac enzyme was unremarkable. A general medical work-up was unrevealing although the patient was admitted for further evaluation and management. Currently, the patient reports that he is asymptomatic. He denies vertigo, nausea, vomiting, diplopia, dysarthria, dysphagia, focal weakness, sensory loss, chest pain, or palpitations. Additional details as below. Allergies Allergy/AdvReac Type Severity Reaction Status Date / Time amlodipine [From [facility]] Allergy Intermediate legs/feet Verified 01/26/19 13:27 swelling lisinopril Allergy Intermediate "DISORIENTE Verified 01/26/19 13:27 D" Home Medications Home Medications Medication Instructions Recorded Confirmed Type aspirin [Aspirin Low Dose] 81 mg PO QAM 06/03/18 01/26/19 History atorvastatin 40 mg PO QAM 06/03/18 01/26/19 History calcium carbonate [Calcium 500] 500 mg PO QPM 06/03/18 01/26/19 History calcium citrate-vitamin D3 1 tab PO QAM 06/03/18 01/26/19 History [Citracal Regular] clopidogrel 75 mg PO QPM 06/03/18 01/26/19 History glucosamine-chondroitin [Osteo 1 tab PO QAM 06/03/18 01/26/19 History Bi-Flex] losartan 50 mg PO QPM 06/03/18 01/26/19 History metformin 1,000 mg PO BID 06/03/18 01/26/19 History multivitamin 1 tab PO QAM 06/03/18 01/26/19 History psyllium 1 tbsp PO QAM 06/03/18 01/26/19 History triamterene-hydrochlorothiazid 1 cap PO QAM 06/03/18 01/26/19 History [Dyazide] amoxicillin-pot clavulanate 1 tab PO BID 9 Days #18 tab 01/21/19 01/26/19 Rx [Augmentin] meclizine 25 mg PO TID PRN #30 tab 01/21/19 01/26/19 Rx omega 3-bwf-xsk-fish oil 1,000 mg 3 cap PO QAM cap 01/26/19 01/26/19 History (120 mg-180 mg) capsule Patient History Medical History Side effect of drug (Acute) Abnormal EKG (Acute) Vertigo (Acute) Diabetes mellitus, type 2 Fatty liver disease, nonalcoholic Hearing deficit Hyperlipidemia Hypertension Kidney stones On anticoagulant therapy plavix Peripheral arterial disease Surgical History History of colonoscopy History of endarterectomy [address] [facility] Left common iliac with abdominal aortic endartectomy History of removal of cyst right knee History of right inguinal hernia repair History of tooth extraction all teeth removed Family History Mother Family history of diabetes mellitus Social History Preferred Language: Kinyarwanda Communication Ability: Effective News Camera Operator Required: No Beliefs That Will Affect Care: None Current Living Situation: Spouse Other Information That Helps Us Care for You: No Feels Safe at Home: Yes Safety Concerns: Feels Safe At This Time Smoking Status: Former smoker Tobacco Type: cigarettes Do You Dip or Chew Tobacco: No Second Hand Exposure: Yes Tobacco Cessation Education Requested by Patient: No Hx Alcohol Use: Yes Alcohol type: wine Hx Substance Use: No Review of Systems Constitutional: no fever and no chills Eyes: no blind spots and no diplopia Ear, Nose, Mouth, Throat: as per Subjective / HPI and + dizziness Respiratory: no cough and no dyspnea Cardiovascular: no chest pain and no palpitations Gastrointestinal: as per Subjective / HPI Genitourinary: no dysuria and no urinary incontinence Musculoskeletal: no myalgia Integumentary: no rash and no lesions Neurologic: as per Subjective / HPI Psychiatric: no depression and no anxiety Hematologic / Lymphatic: no easy bleeding and no easy bruising Physical Exam Physical Exam: The patient is a well-developed, well-nourished elderly male. He is alert and fully oriented. Recent and remote memory intact. Attention and concentration normal. Patient exhibits a normal spontaneous speech pattern. He is able to name objects and repeat phrases. Patient exhibits an age- appropriate fund of knowledge and normal comprehension of vocabulary. Visual joe full to confrontation. Visual acuity normal. Pupils equal round r eactive to light and accommodation. Eye movements normal. There is no nystagmus. Facial sensation intact. There is no facial weakness or facial droop. Hearing intact bilaterally. Palate elevates to midline. Shoulder shrug intact. Tongue protrudes to midline. Sensation intact to all modalities in all 4 limbs. Deep tendon reflexes intact and symmetrical for the arms and legs bilaterally. Plantar responses downgoing bilaterally. There is no dysdiadochokinesia or dysmetria grsblz-ri-juvm or jvug-ln-devq bilaterally. Ophthalmoscopic examination reveals normal-appearing optic disks and posterior segments. No papilledema or hemorrhages. Carotid pulses normal bilaterally, no bruits to auscultation. Gait and station normal. Patient exhibits normal muscle strength and tone for all 4 limbs. No atrophy. No abnormal movements observed. Manda-Hallpike negative. Results & Data Vital Signs (Past 12 Hours) Vital Signs Temp Pulse Pulse Resp BP Pulse Ox 01/27/19 07:32 87 01/27/19 06:58 36.5 C 73 16 139/87 95 01/27/19 02:27 36.4 C L 77 16 112/72 92 01/27/19 00:30 72 01/26/19 23:12 36.6 C 72 16 126/74 94 Laboratory Results Recently completed labs reviewed. WBC 7.28, hemoglobin 15.5, platelet count 204, sodium 136, potassium 3.6, BUN 14, creatinine 1.13, glucose 145, calcium 9.6, magnesium 2.0, AST 62, ALT 190, TSH 2.[address] of the head completed 01/21/2019 was negative for hemorrhage or acute process. Images and report reviewed. MRI of the brain completed 01/26/2019 was negative for acute or subacute stroke. No hydrocephalus or parenchymal disease. No acute abnormality. Images and report reviewed. An electrocardiogram completed yesterday revealed a normal sinus rhythm, nonspecific T wave abnormality, 98 bpm.
[2019-01-27] MEDS ORDERED: OPTIRAY 320 125ml IV PRN (11:43)
--- NOTE | 2019-01-27 11:53 | CT Scan Report ---
CT angio head wo/w HISTORY: 68 years-old Male vertigo, r/o VBI acute vertigo COMPARISON: CT head 01/21/2019, brain MRI 01/26/2019 TECHNIQUE: CTA of the head was obtained both with and without the use of 118 mL Optiray [address] All measurements were obtained according to NASCET criteria. A dose lowering technique was used c onsistent with the principals trinidad SANTIAGO. FINDINGS: Noncontrast study demonstrates no acute intracranial hemorrhage, midline shift, abnormal extra-axial collection, hydrocephalus or intracranial mass. No calvarial fracture. Mastoid air cells and middle e ar cavities are clear. Moderate mucosal thickening of the ethmoid air cells, maxillary and sphenoid s inuses with air-fluid levels suggestive of acute sinusitis. Soft tissues and orbits are unremarkable. The imaged bilateral internal carotid arteries appear patent. Mild calcified plaque about the caverno us and clinoid segments. The bilateral middle and right anterior cerebral arteries appear unremarkabl e. Hypoplastic left vertebral artery, likely developmental. Anterior communicating artery is patent. The imaged bilateral vertebral arteries appear patent. The basilar and bilateral posterior cerebral a rteries also appear to be patent. origin of the right posterior cerebral artery. Cerebral venou s sinuses are patent and within normal limits. IMPRESSION: 1. No acute intracranial abnormality. 2. Unremarkable CTA without aneurysm, dissection, high-grade stenosis or proximal branch occlusion. 3. Paranasal sinus disease as above. The above report was generated using voice recognition software. It may contain grammatical, syntax o r spelling errors. Electronically signed by: Nate Fitzpatrick M.D. 01/27/2019 11:52 AM
--- NOTE | 2019-01-27 11:56 | CT Scan Report ---
CT angio neck with con CLINICAL HISTORY: Vertigo. Possible vertebrobasilar insufficiency. COMPARISON STUDY: No previous studies for comparison. TECHNIQUE: CT angiography was performed from the aortic arch to the skull base. MIP imaging was perfo rmed. The patient was scanned in a dynamic helical fashion during intravenous administration of 118 c c of Optiray 320. A dose lowering technique was utilized adhering to the principles of ALARA. CT DOSE: Technique: CT angiogram of the carotid and vertebral arteries was obtained using intravenous contrast and 3-D reconstruction. NASCET criteria was utilized. Findings: There is mild apical emphysema. The right carotid revealed no evidence of aneurysm and no evidence of dissection. There is no evidenc e of hemodynamic significant stenosis. The left carotid revealed no evidence of hemodynamic significant stenosis. There is no evidence of an eurysm. There is no evidence of dissection. There is no evidence of hemodynamically significant vertebral stenosis. There is no evidence of verte bral dissection. There is pansinus disease. IMPRESSION: No evidence of hemodynamically significant carotid or vertebral artery stenosis. No evidence of disse ction. Electronically signed by: Jorge Baker M.D. 01/27/2019 11:55 AM
--- NOTE | 2019-01-27 13:43 | Discharge Summary ---
Date of Service January 27, 2019 Admission HPI Per Admitting Provider 68-year-old male who has been treated with meclizine and Augmentin for the past week for vertigo. He has had sedation side effects from the Antivert. Today he was evaluated by his physician and had an EKG done because of apparent extra beats on examination. The EKG revealed new ST wave changes as compared to his previous EKG. The patient has been complaining of fatigue and weakness but denies any chest pain or actually feeling palpitations. Chest x-ray is clear. Lyme titers are pending. Troponin is normal. He will be placed in observation for further assessment with cardiac echo and brain MRI scan. Cardiology consultation and neurological consultation have been requested. Admission Exam Per Admitting Provider General-mildly sedated but oriented x3, no fevers, no chills HEENT-head atraumatic and normocephalic, TMs intact bilaterally, pupils equal and reactive to light, extraocular muscles intact Neck-no lymphadenopathy or thyromegaly, trachea midline Chest-clear to auscultation percussion. No rales wheezing or rhonchi Cardiac-regular rate and rhythm, normal S1 and S2, no murmurs Abdomen-normal bowel sounds, nontender, no hepatosplenomegaly Extremities-no cyanosis, clubbing, or edema Neuro-cranial nerves II through XII intact, motor and sensory function within normal limits, strength symmetrical 5/5, no focal deficits Psych-normal affect, normal mood Principal Diagnosis Benign positional paroxysmal vertigo; cardiac rule out Discharge Exam Constitutional WD/WN, vitals as above Eyes EOM intact bilaterally ENMT external ear and nose normal, oropharynx normal Neck normal visual inspection and trachea midline Respiratory normal respiratory effort, lungs clear to auscultation Cardiovascular Rate/Rhythm: regular rate and regular rhythm Extremities: no pedal edema Gastrointestinal (Abdomen) Percussion/Palpation: abdomen soft; abdomen nontender, no guarding and abdomen not rigid Musculoskeletal Head/Neck/Chest: normocephalic and head atraumatic Skin no rashes, warm and dry Neurologic CN's II-XI intact bilaterally, moves all extremities and awake Psychiatric A+Ox3, euthymic affect Discharge Data Allergies Allergy/AdvReac Type Severity Reaction Status Date / Time amlodipine [From [facility]] Allergy Intermediate legs/feet Verified 01/26/19 13:27 swelling lisinopril Allergy Intermediate "DISORIENTE Verified 01/26/19 13:27 D" Consultations 01/26/19 16:45 Consult Cardiology Routine Consult Neurology Routine Ordered Studies 01/26/19 16:45 MR brain wo con Routine IMPRESSION: 1. No acute intracranial abnormality. 01/27/19 09:25 CT angio head wo/w Routine IMPRESSION: 1. No acute intracranial abnormality. 2. Unremarkable CTA without aneurysm, dissection, high-grade stenosis or proximal branch occlusion. 3. Paranasal sinus disease as above CT angio neck with con Routine IMPRESSION: No evidence of hemodynamically significant carotid or vertebral artery stenosis. No evidence of dissection. Hospital Course (1) Abnormal EKG: Nestor Guzmán is a 68 year old male with past medical history of DM, HLD, HTN, PAD who was sent to [facility] from PCP for abnormal ECG in office and subsequent admission from ED for cardiac workup. He noted to have recent ED visit for vertigo and was diagnosed with sinusitis and vertigo; was given Rx for Meclizine and Augmentin. He said he felt cloudy and was sleepy on Meclizine which he endorses he was taking scheduled and not PRN. He went to see his PCP because of ED follow up then had the abnormal ECG (showed nonspecific T-wave changes in the anterior leads) prompting being sent to ED then admission. His hospital course was unremarkable. He noted to feel better after eating adequate breakfast. Cardiology and neurology were consulted. He had negative troponin in ED and on day of discharge. ECG was unchanged from previous on 01/21. Echocardiogram notes normal left ventricular systolic function, borderline LVH, and unprofound mitral regurgitation. He did not experience any chest pain or dyspnea throughout course of illness or during admission. Neurology workup included MRI brain w/o con showed no acute intracranial abnormality; CT angio head wo/w that only showed sinus abnormalities without any vascular disease; CT angio neck with con showed No evidence of hemodynamically significant carotid or vertebral artery stenosis. No evidence of dissection. Neuro diagnosed vertigo as BPPV and was okay with continuing Meclizine. Neuro noted that if symptoms returned or continued that referral to Physical Therapy for Leon maneuvers could be of benefit. (2) BPPV (benign paroxysmal positional vertigo): resolving, as noted above, may continue with Meclizine. I discussed with patient to take PRN or try taking half a tab since he was taking scheduled and noted increase drowsiness and feeling foggy. Again, recommendation for PT referral for Leon maneuvers as outpatient if symptoms return. Total Time Total Time Spent Total Time Spent (In Minutes): 30 Total Time Includes: Examination of the Patient, Discharge Planning, Medication Reconciliation and Communication With Other Providers Discharge Plan Discharge Items Patient Disposition: Home - Self-Care Reason For Visit: ABNORMAL EKG Discharge Diagnosis: Abnormal EKG; Benign paroxysmal positional vertigo Discharge Goals: Prevent disease and Therapeutic intervention Activity: Resume your previous activity Non-emergency contact: Primary Care Provider Call non-emergency contact if: you have any medication questions and your symptoms worsen Follow-up/Referrals: Brandie Vazquez, [Primary Care Provider] - Diet: Carb Consistent or DM2 Addtl Provider Instructions: You were admitted for abnormal EKG requiring further cardiac workup to ensure there no potential life threatening events. Your ECG showed some abnormalities but this was unchanged from previous EKG performed on 01/21/19, which is reassuring. Also, lab work supported that there was no heart damage or signs of a heart attack. Your echocardiogram performed here to look at the wall motion of your heart was noted normal left ventricular systolic function, borderline Left Ventricle enlargement, and unprofound mitral regurgitation (essentially unremarkable or no signs of acute disease). Cardiology physicians were consulted during your stay and at this time concurred that there were no signs of acute/new heart disease/damage, For your Vertigo, neurology physician team was consulted and active in the evaluation of your vertigo. Neurology workup included Imaging studies included: MRI brain w/o con showing no acute intracranial abnormality; CT angio head wo/w that only showed sinus abnormalities without any vascular disease; CT angio neck with con showed No evidence of hemodynamically significant carotid or vertebral artery stenosis. No evidence of dissection. Neuro diagnosed vertigo as benign paroxysmal positional vertigo), which is simply vertigo caused by head movement/changes head positioning. Neurology was okay with continuing Meclizine, but again only take Meclizine as needed or try taking half a tablet if you are experiencing side effects of drowsiness/fogginess which can be a side effect of medication. Neuro noted that if symptoms returned or continued that referral to Physical Therapy for Leon maneuvers could be of benefit. You can discuss this with your Primary Care Doctor at hospital follow up. Please call your PCP for hospital follow up for next available appointment. Prescriptions: Continued omega 2-nsl-pke-fish oil [Fish Oil] 1,000 mg (120 mg-180 mg) capsule 3 cap PO QAM RF: 0 losartan 50 mg Tablet 50 mg PO QPM RF: 0 calcium citrate-vitamin D3 [Citracal Regular] 250 mg calcium- 200 unit Tablet 1 tab PO QAM RF: 0 multivitamin Tablet 1 tab PO QAM RF: 0 atorvastatin 40 mg Tablet 40 mg PO QAM RF: 0 clopidogrel 75 mg Tablet 75 mg PO QPM RF: 0 aspirin [Aspirin Low Dose] 81 mg Tablet,Delayed Release (Dr/Ec) 81 mg PO QAM RF: 0 triamterene-hydrochlorothiazid [Dyazide] 37.5-25 mg Capsule 1 cap PO QAM RF: 0 calcium carbonate [Calcium 500] 500 mg calcium (1,250 mg) Tablet 500 mg PO QPM RF: 0 psyllium Powder 1 tbsp PO QAM RF: 0 metformin 1,000 mg Tablet 1,000 mg PO BID RF: 0 glucosamine-chondroitin [Osteo Bi-Flex] 250-200 mg Tablet 1 tab PO QAM RF: 0 amoxicillin-pot clavulanate [Augmentin] 875-125 mg tablet 1 tab PO BID 9 Days Qty: 18 RF: 0 meclizine 25 mg tablet 25 mg PO TID PRN (Reason: dizziness) Qty: 30 RF: 0 Stand-Alone Forms: [facility] Discharge Orders: Discharge Order (Routine); Ordered 01/27/19 Ordered By: Matty Tipton Admission Data Admit Date/Time: 01/26/19 14:57 Attending Provider: Kavon Barry Admit Provider: Jair Louis Primary Care Provider: Brandie Vazquez Other Providers: Arya Jimenes ; Ryan Sarmiento ; Jhony Clark ; Sagar Espana ; Chavez Teran Jr ; Dipesh Dyer ; Khushbu Singh ; Shaista Hamilton ; Kavon Khan ; Kavon Hernandez ; Darinel Meza ; Jair Douglas ; Miesha Eduardo ; Yesica Jones ; Anthony Ingram ; Chavez Alberto III ; Faye Chen ; Piter Fernandez Service: Telemetry Other Interventions: Discharge Summary Assessment (RN) Last Done: 01/27/19 14:39 DC Date/Time DO NOT enter until pt leaves facility: 01/27/19 15:16 Supervising Physician Co-Signing Physician Notes Attending attestation Pt seen and examined in concert with Dr. Tipton. In agreement with the documented findings as noted in the resident documentation with any exceptions or additions as noted here. Minimal vertigo symptoms at present and reports no chest pain, SOB, n/v, diaphoresis, CLARKE. On examination, S1/S2 nl RRR no MCG. CTAB. Abd NT/ND BS+ve. CNII-XII grossly intact as tested. EKG abnormality w/ BPPV - neurology and cardiology consultation appreciated - negative troponin evaluation, echocardiogram as noted - CT head/neck w/o cau sative lesion. Meclizine PRN dizziness w/ half tab for decreased sedation if needed Resident Activity Tracking Resident Involvement: Resident Care Provided Care Provided: Adult Hospital Medicine
--- NOTE | 2019-01-27 14:02 | Cardiology Consultation ---
Date of Consultation January 27, 2019 Assessment & Plan (1) Abnormal EKG: The patient demonstrates nonspecific T-wave abnormality most pronounced in the anterior leads. This is essentially unchanged from an EKG done on January 21. At no time has the patient experience cardiac symptoms. No need for further evaluation at this time. (2) Essential hypertension: The patient does demonstrate left ventricle hypertrophy on his echocardiogram. Continue aggressive treatment of his blood pressure. (3) Hypercholesterolemia: Stable on atorvastatin. History of Present Illness Attending Physician: Kavon Barry MD History of Present Illness Mr. Guzmán this 68-year-old male admitted yesterday because of an abnormal EKG. This consultation was ordered to assist in his management. The patient's recent history began approximately 1 week ago when he noted significant vertigo. He was seen in the emergency room on January 21 and discharged on meclizine and Augmentin. Over the ensuing 5 days, the patient felt extremely fatigued and had little change in his symptoms. He was seen yesterday by his primary care team an EKG was obtained which showed nonspecific T-wave changes in the anterior leads. It was suggested he proceed to the emergency room for further evaluation. The patient has never experienced exertional chest pain. Although he does not follow a routine exercise program, he is vigorous on a daily basis caring for his home and property. He is able to push mow his lawn for over 1 hour. He has never experienced exertional angina pectoris or limiting dyspnea. He further denies syncope, presyncope, PND, orthopnea, palpitations, lower extremity edema, and claudication. Time currently, patient is resting comfortably in bed without complaints. Past medical and surgical history 1. Hypertension 2. Hypercholesterolemia 3. Diabetes mellitus 4. Peripheral vascular disease 5. Right fem-pop bypass-2010 6. Nephrolithiasis 7. BPH 8. Steatohepatitis 9. Colonic polyps 10. Diverticulosis 11. Right inguinal hernia repair-2001 Social history and lives with his Retired from food preparation kitchen aide at [employer] Quit tobacco use 4 years ago, 35 pack year history Rare alcohol Family history Father at 78 from complications of alcohol abuse Mother at 58 from complications of diabetes Review of systems A 10 point review of systems was undertaken and negative except for that described above. Allergies Allergy/AdvReac Type Severity Reaction Status Date / Time amlodipine [From Norvasc] Allergy Intermediate legs/feet Verified 01/26/19 13:27 swelling lisinopril Allergy Intermediate "DISORIENTE Verified 01/26/19 13:27 D" Home Medications Home Medications Medication Instructions Recorded Confirmed Type aspirin [Aspirin Low Dose] 81 mg PO QAM 06/03/18 01/26/19 History atorvastatin 40 mg PO QAM 06/03/18 01/26/19 History calcium carbonate [Calcium 500] 500 mg PO QPM 06/03/18 01/26/19 History calcium citrate-vitamin D3 1 tab PO QAM 06/03/18 01/26/19 History [Citracal Regular] clopidogrel 75 mg PO QPM 06/03/18 01/26/19 History glucosamine-chondroitin [Osteo 1 tab PO QAM 06/03/18 01/26/19 History Bi-Flex] losartan 50 mg PO QPM 06/03/18 01/26/19 History metformin 1,000 mg PO BID 06/03/18 01/26/19 History multivitamin 1 tab PO QAM 06/03/18 01/26/19 History psyllium 1 tbsp PO QAM 06/03/18 01/26/19 History triamterene-hydrochlorothiazid 1 cap PO QAM 06/03/18 01/26/19 History [Dyazide] amoxicillin-pot clavulanate 1 tab PO BID 9 Days #18 tab 01/21/19 01/26/19 Rx [Augmentin] meclizine 25 mg PO TID PRN #30 tab 01/21/19 01/26/19 Rx omega 9-vqy-kkw-fish oil 1,000 mg 3 cap PO QAM cap 01/26/19 01/26/19 History (120 mg-180 mg) capsule Patient History Medical History Side effect of drug (Acute) Abnormal EKG (Acute) Vertigo (Acute) Diabetes mellitus, type 2 Fatty liver disease, nonalcoholic Hearing deficit Hyperlipidemia Hypertension Kidney stones On anticoagulant therapy plavix Peripheral arterial disease Surgical History History of colonoscopy History of endarterectomy 2010 @ [facility] Left common iliac with abdominal aortic endartectomy History of removal of cyst right knee History of right inguinal hernia repair History of tooth extraction all teeth removed Family History Mother Family history of diabetes mellitus Social History Preferred Language: Ghanaian Communication Ability: Effective Relief Worker Required: No Beliefs That Will Affect Care: None Current Living Situation: Spouse Other Information That Helps Us Care for You: No Feels Safe at Home: Yes Safety Concerns: Feels Safe At This Time Smoking Status: Former smoker Tobacco Type: cigarettes Do You Dip or Chew Tobacco: No Second Hand Exposure: Yes Tobacco Cessation Education Requested by Patient: No Hx Alcohol Use: Yes Alcohol type: wine Hx Substance Use: No Physical Exam Physical Exam: In general this is a well-developed well-nourished white male in no acute distress. HEENT exam is negative. Neck is supple with full carotid upstrokes. There are no carotid bruits. Jugular venous pressure is flat at 90. There is no thyromegaly. Cardiovascular exam reveals a regular rhythm with a normal S1 and S2. No S3, S4, or murmurs are noted. Lungs are clear without rales, rhonchi, or wheezes. Abdomen is soft and nontender without bruits. Extremities reveal intact radial artery and posterior tibial pulses bilaterally. There is no peripheral edema. Results & Data Vital Signs (Past 12 Hours) Vital Signs Temp Pulse Pulse Resp BP Pulse Ox 01/27/19 11:25 36.4 C L 75 20 135/82 95 01/27/19 07:32 87 01/27/19 06:58 36.5 C 73 16 139/87 95 01/27/19 02:27 36.4 C L 77 16 112/72 92 Laboratory Results Laboratory Results - last 24 hr 01/26/19 01/26/19 01/26/19 12:55 12:55 16:58 PT 10.8 INR 1.1 APTT 27.4 PTT Ratio 1.0 POC Glucose 90 Troponin I Lyme Disease IgG Ab Negative Lyme Disease IgM Ab Negative 01/26/19 01/27/19 01/27/19 20:27 07:30 11:07 PT INR APTT PTT Ratio POC Glucose 125 H 119 H 123 H Troponin I Lyme Disease IgG Ab Lyme Disease IgM Ab 01/27/19 12:57 PT INR APTT PTT Ratio POC Glucose Troponin I < 0.015 Lyme Disease IgG Ab Lyme Disease IgM Ab Diagnostic Findings EKG notes normal sinus rhythm and nonspecific T-wave abnormality most pronounced in the anterior leads. This is unchanged from a tracing done earlier on the day of admission. It is essentially unchanged from an EKG done on January 21. Echocardiogram notes normal left ventricular systolic function, borderline LVH, and trivial mitral regurgitation. Chest x-ray shows no acute disease. Brain MRI scan was normal.
== END 2019-01-27 15:16 | disposition home or self-care (01) ==
LOC: 2S 12:26 → ED 12:26 → SUATTDRO 14:57 → 2S 16:30

== ENCOUNTER 2019-05-17 13:34 | Observation (INO) ==
[2019-05-17] MEDS ORDERED: FAMOTIDINE 20MG IV PUSH 20 MG/5 ML SYR IV STA (13:54)
[2019-05-17] MEDS ORDERED: SODIUM CHLORIDE 0.9% 500 ML IV SCH (14:00)
--- NOTE | 2019-05-17 14:16 | XRay Report ---
XR chest 1V portable HISTORY: Shortness of breath. COMPARISON: Chest 01/26/2019. FINDINGS: The heart is normal in size. No focal lung consolidations to suggest pneumonia. No evidence for pulmonary edema. No pleural effusions. No pneumothorax. Slight prominence of interstitial markin gs which appears unchanged. This may be chronic. IMPRESSION: No significant change compared to the prior study. No acute process. Electronically signed by: Chan Salgado M.D. 05/17/2019 2:15 PM
[2019-05-17 15:45] LABS: Hemoglobin 14.9 g/dL (14.0-18.0); Mean Corpuscular Hemoglobin 29.4 pg (25-34); Mean Corpuscular Hgb Conc 33.9 g/dL (32-36); Mean Platelet Volume 11.4 fL (7.4-10.4); Platelet Count 202 K/uL (130-400); RDW Coefficient of Variation 12.9 % (11.5-14.5); Red Blood Count 5.06 M/uL (4.7-6.1); White Blood Count 15.36 K/uL (4.8-10.8)
[2019-05-17 15:46] LABS: Albumin Level 3.5 gm/dl (3.4-5.0); BUN Creatinine Ratio 10.1 (10-20); Creatinine Clr Calc Pharmacy 78.6 ml/min; Est GFR (African American) 74.9; Est GFR (Non-African American) 64.6; Potassium 3.7 mmol/L (3.5-5.1)
[2019-05-17 15:48] LABS: Albumin Globulin Ratio 1.2 (0.9-2); Bilirubin,Total 0.3 mg/dl (0.2-1); Globulin 2.8 gm/dl (2.5-4.0); Total Protein 6.4 gm/dl (6.4-8.2)
[2019-05-17 16:10] LABS: Basophils # (auto) 0.03 K/uL (0-0.2); Basophils % (auto) 0.2 %; Eosinophils # (auto) 0.05 K/uL (0-0.5); Eosinophils % (auto) 0.3 %; Immature Granulocytes # (auto) 0.06 K/uL (0.00-0.02); Immature Granulocytes % (auto) 0.4 %; Lymphocytes # (auto) 0.83 K/uL (1.2-3.4); Lymphocytes % (auto) 5.4 %; Monocytes # (auto) 0.86 K/uL (0.11-0.59); Monocytes % (auto) 5.6 %; Neutrophils # (auto) 13.53 K/uL (1.4-6.5); Neutrophils % (auto) 88.1 %
--- NOTE | 2019-05-17 17:16 | History & Physical Report ---
Date of Service May 17, 2019 Assessment & Plan (1) Acute anaphylaxis: - Likely related to Keflex dose -- cephalosporins were added to allergy list. - CXR was negative; labs showed leukocytosis, elevated eosinophil count. - Received Epinephrine, Benadryl and Pepcid at PCP office; continue Famotidine BID. - Will continue to observe patient overnight, no further medication management required. - Converting abx to Clindamycin as noted below. (2) Angioedema: - As noted above; now resolved following treatment. (3) Ingrown right big toenail: - Prescribed Keflex by PCP, developed anaphylaxis. - Will start Clindamycin 150 mg q6hr; Probiotic daily. - Recommend follow up with podiatry for evaluation. - Warm salt water soaks and compresses for pain relief prn. (4) Type 2 diabetes mellitus: - A1C was 7.2 in November 2018. - Hold home Metformin; start SSI coverage. - Repeat A1C in the morning. (5) Peripheral vascular disease: - S/p fem-popliteal bypass graft on the right [place] [address] Oliveira. - Continue statin, aspirin and Plavix as prescribed. (6) Fatty infiltration of liver: - Encourage heart healthy diet and weight loss/exercise. (7) Hypercholesterolemia: - Continue statin & aspirin as prescribed. (8) Essential hypertension: - Continue Triamterene-HCTZ and Losartan as prescribed. (9) DVT prophylaxis: - SCDs; Lovenox daily. Dispo: Med/surg for observation status; discharge likely on 05/18/19. History of Present Illness Chief Complaint: Anaphylaxis Primary Care Provider: Brandie Vazquez DO Mr. Guzmán is a 68 y/o male with PMHx of Pre-diabetes, HTN, HLD, PAD who presented with acute anaphylaxis. Pt. states he developed right first toe swelling a few weeks ago - he has been using topical bacitracin ointment with no improvement. He was evaluated at his PCP office and prescribed a course of Keflex this morning. Pt. took dose of Keflex around 12 pm and stepped outside with his dog. He developed sneezing 5-10 minutes after taking dose of antibiotic followed by redness/swelling/itching of both arms that eventually spread to his neck. He had tongue swelling and mild shortness of breath. Pt. went directly to his PCPs office; he received Epinephrine, Benadryl and Pepcid. He was transferred to the ER via ambulance and has not required further treatment for anaphylaxis. Swelling is now improved, does have minor eyelid edema noted. Has h/o allergy to Lisinopril (confusion) and Norvasc (lower extremity edema); denies h/o antibiotic allergies. ER course: Pt. received Famotidine 20 mg IV push. CXR was negative. Labs showed a leukocytosis, otherwise negative. Will be admitted for observation status. Allergies Allergy/AdvReac Type Severity Reaction Status Date / Time cephalexin [From Keflex] Allergy Severe Anaphylaxis Verified 05/18/19 11:20 amlodipine [From Norvasc] Allergy Intermediate legs/feet Verified 05/24/19 10:23 swelling lisinopril Allergy Intermediate "DISORIENTE Verified 05/24/19 10:23 D" Home Medications Home Medications Medication Instructions Recorded Confirmed Type aspirin 81 mg tablet,delayed 81 mg PO QAM #30 tab 02/02/19 05/17/19 Rx release atorvastatin 40 mg tablet 40 mg PO QAM #30 tab 02/02/19 05/17/19 Rx calcium carbonate 500 mg calcium 500 mg PO QPM #30 tab 02/02/19 05/17/19 Rx (1,250 mg) tablet clopidogrel 75 mg tablet 75 mg PO QPM #30 tab 02/02/19 05/17/19 Rx glucosamine-chondroitin 250 mg-200 1 tab PO QAM #30 tab 02/02/19 05/17/19 Rx mg tablet metformin 1,000 mg tablet 1,000 mg PO BID #60 tab 02/02/19 05/17/19 Rx multivitamin tablet 1 tab PO QAM #30 tab 02/02/19 05/17/19 Rx triamterene 37.5 1 cap PO QAM #30 cap 02/02/19 05/17/19 Rx mg-hydrochlorothiazide 25 mg capsule losartan 50 mg tablet 50 mg PO QPM #90 tab 04/29/19 05/17/19 Rx omega 7-qmt-iup-fish oil [Fish Oil] 3 cap PO BID 05/17/19 05/17/19 History Past Med/Surg History Medical History H/O diverticulitis of colon (Resolved) Subacute pancreatitis (Resolved) Diabetes mellitus, type 2 Fatty liver disease, nonalcoholic Femoral-popliteal bypass graft occlusion, right Hearing deficit Hyperlipidemia Hypertension Kidney stones On anticoagulant therapy plavix Peripheral arterial disease Testicular hypofunction Surgical History H/O hernia repair H/O knee surgery Cyst removed from R knee. History of colonoscopy History of endarterectomy 2010 @ [facility] Left common iliac with abdominal aortic endartectomy History of removal of cyst right knee History of right inguinal hernia repair History of tooth extraction all teeth removed Family History Mother Diabetes Cardiac disorder Father Alcoholism Coronary atherosclerosis Social History Preferred Language: Mohawk Communication Ability: Effective Visual Impairment: No Limitations Hearing Ability: Normal Procurement Officer Required: No Beliefs That Will Affect Care: None marital status: Current Living Situation: Spouse current occupational status: retired Feels Safe at Home: Yes Smoking Status: Former smoker Tobacco Type: cigarettes ; Second Hand Exposure: Yes ; Hx Alcohol Use: Yes Alcohol type: beer and wine Hx Substance Use: No Childhood Exposure to Second-Hand Smoke: Yes Dental Care, Regularly: Yes Physical Activity Frequency: Does not Exercise Seatbelt Use: always Sunscreen Use: Yes Review of Systems Review of Systems: All systems reviewed & are unremarkable except as noted in HPI & below Constitutional: no fever, no chills, no fatigue, no weakness and no anorexia Eyes: + itchy eyes and + worsening vision Respiratory: + dyspnea; no cough, no dyspnea on exertion and no wheezing Cardiovascular: no chest pain, no palpitations and no edema Gastrointestinal: no abdominal pain, no nausea, no vomiting, no constipation and no diarrhea/loose stools Genitourinary: no dysuria, no difficulty urinating, no urinary frequency and no hematuria Musculoskeletal: + swelling; no back pain and no joint pain Integumentary: + erythema, + urticaria and + skin swelling Allergy / Immunological: + itchy eyes, + lip swelling, + throat swelling, + tongue swelling, + urticaria and + dyspnea Physical Exam Physical Exam: General: Resting comfortably HEENT: Bilateral upper eyelid edema noted; PERRLA with EOMI; Latimer conjunctiva, MMM. No erythema of posterior pharynx Neck: Supple and nontender Cardiac: RRR Lungs: CTA bilaterally Abdomen: Bowel normoactive X 4; Nontender to palpation Extremities: Warm. No edema present Neuro: No focal weakness Skin: No rash Results & Data Vital Signs (Past 12 Hours) Vital Signs Temp Pulse Pulse Resp BP BP Pulse Ox 05/17/19 16:45 107 H 19 118/73 94 05/17/19 16:30 110 H 17 148/75 H 93 05/17/19 16:15 107 H 17 102/59 L 92 05/17/19 16:00 98 H 105 H 14 120/54 L 120/54 L 93 05/17/19 15:45 102 H 19 102/55 L 93 05/17/19 15:30 107 H 23 101/60 92 05/17/19 15:15 101 H 5 L 107/62 95 05/17/19 15:00 103 H 13 109/73 94 05/17/19 14:45 99 H 14 115/69 96 05/17/19 14:30 98 H 13 113/71 95 05/17/19 14:28 99 H 19 123/77 95 05/17/19 14:15 100 H 9 L 123/77 96 05/17/19 14:01 98 05/17/19 14:00 101 H 14 132/80 97 05/17/19 13:53 36.8 C 103 H 15 155/80 H 98 05/17/19 13:45 103 H 22 145/80 H 98 Laboratory Results 05/17/19 05/17/19 Range/Units 15:15 15:15 WBC 15.36 H (4.8-10.8) K/uL RBC 5.06 (4.7-6.1) M/uL Hgb 14.9 (14.0-18.0) g/dL Hct 44.0 (42-52) % MCV 87.0 (80-100) fL MCH 29.4 (25-34) pg MCHC 33.9 (32-36) g/dL RDW Std Deviation 41.0 (36.4-46.3) fL RDW Coeff of Laci 12.9 (11.5-14.5) % Plt Count 202 (130-400) K/uL MPV 11.4 H (7.4-10.4) fL Immature Gran % (Auto) 0.4 % Neut % (Auto) 88.1 % Lymph % (Auto) 5.4 % Rich % (Auto) 5.6 % Eos % (Auto) 0.3 % Baso % (Auto) 0.2 % Immature Gran # (Auto) 0.06 H (0.00-0.02) K/uL Neut # (Auto) 13.53 H (1.4-6.5) K/uL Lymph # (Auto) 0.83 L (1.2-3.4) K/uL Rich # (Auto) 0.86 H (0.11-0.59) K/uL Eos # (Auto) 0.05 (0-0.5) K/uL Baso # (Auto) 0.03 (0-0.2) K/uL Sodium 136 (136-145) mmol/L Potassium 3.7 (3.5-5.1) mmol/L Chloride 103 (98-107) mmol/L Carbon Dioxide 23 (21-32) mmol/L Anion Gap 10.0 (3-11) BUN 12 (7-18) mg/dl Creatinine 1.17 (0.6-1.4) mg/dl Est Cr Clr Drug Dosing 78.6 ml/min Est GFR ( Amer) 74.9 Est GFR (Non-Af Amer) 64.6 BUN/Creatinine Ratio 10.1 (10-20) Glucose 160 H (70-99) mg/dl Calcium 9.0 (8.5-10.1) mg/dl Total Bilirubin 0.3 (0.2-1) mg/dl AST 57 H (15-37) U/L ALT 150 H (12-78) U/L Alkaline Phosphatase 80 (45-117) U/L Total Protein 6.4 (6.4-8.2) gm/dl Albumin 3.5 (3.4-5.0) gm/dl Globulin 2.8 (2.5-4.0) gm/dl Albumin/Globulin Ratio 1.2 (0.9-2) Code Status & VTE Plan Code Status FULL CODE VTE Prophylaxis Plan VTE Prophylaxis will be ordered: Yes Supervising Physician Co-Signing Physician Notes During my face to face encounter, I performed a physical examination and obtained a history on his current illness. I answered all of the patients questions and discussed the plan. I reviewed above note and agree with it. Patient will be admitted under OBS. Appears patient had an allergic reaction to his antibiotic. will monitor overnight with plan to discharge in AM. PG Care Time/CCT Total # of Minutes Spent Total Time Spent with Patient: Total time spent is greater than 50% in coordination of care (as documented) at patient's floor/unit and/or counseling patient: (1) Acute anaphylaxis Encounter type: initial encounter Qualified Code(s): T78.2XXA - Anaphylactic shock, unspecified, initial encounter (2) Angioedema Encounter type: initial encounter Qualified Code(s): T78.3XXA - Angioneurotic edema, initial encounter
[2019-05-17] MEDS ORDERED: GLUCAGON FOR INJ 1 MG VIAL SQ PRN (17:27)
[2019-05-17] MEDS ORDERED: DEXTROSE 50% 50 ML SYRINGE IV PRN (17:27)
[2019-05-17] MEDS ORDERED: CARBOHYDRATES FOR HYPOGLYCEMIA PO PRN (17:27)
[2019-05-17] MEDS ORDERED: GLUCOSE 10 TABS/TUBE PO PRN (17:27)
[2019-05-17] MEDS ORDERED: GLUCOSE 40% GEL 15 GM TUBE PO PRN (17:27)
[2019-05-17] MEDS ORDERED: ENOXAPARIN INJ 40 MG/0.4 ML SYR SQ SCH (18:00)
[2019-05-17] MEDS ORDERED: CLINDAMYCIN HCL 150 MG CAP PO SCH (18:00)
[2019-05-17] MEDS: SACCHAROMYCES BOULARDII 250 MG CAP PO SCH (18:11)
[2019-05-17] MEDS: CLINDAMYCIN HCL 150 MG CAP PO SCH ×2 (18:31→23:49)
[2019-05-17] MEDS ORDERED: PHARMACY GLYCEMIC MGMT CONSULT PRN (18:51)
--- NOTE | 2019-05-17 19:16 | Emergency Department Note ---
Entered by Justus Corado acting as a scribe for Alejandro Smith MD History of Present Illness General Chief complaint: Allergic Reaction Stated complaint: allergic reaction Source: patient and EMS History of Present Illness Provider complaint: anaphylaxis Onset (ago): hour(s) 2 Location: face, mouth and neck Severity: severe Pain Consistency: + constant Quality: + other (swelling, itching, sweaty) Exacerbated By: + medication (keflex) Associated symptoms: + denies other symptoms Treatments prior to arrival: other (Benadryl, epinephrine, and solumedrol ) The patient is a 68 y/o male with a past medical history of diabetes and high blood pressure, who presents to the emergency department for evaluation of anaphylaxis to Keflex two hours ago. The patient states that he got a new prescription at his doctors office for a right big toe infection and after he took the dose of Keflex he got hot, sweaty, swollen, and itchy all over. He stated his tongue and throat swelled up and he had some difficulty breathing. EMS notes that he went back to the doctors office where he was given Benadryl, epinephrine, and solumedrol IM prior to arrival. EMS was called and he was brought here by ambulance. The patient reports that at the time he felt like he was going to pass out though he does not currently feel that way. The patient denies any other symptoms. Currently he states his tongue is still swollen but his breathing is much better. He denies any chest pain or history of cardiac disease. Home Medications Home Medications Medication Instructions Recorded Confirmed Type aspirin 81 mg tablet,delayed 81 mg PO QAM #30 tab 02/02/19 05/17/19 Rx release atorvastatin 40 mg tablet 40 mg PO QAM #30 tab 02/02/19 05/17/19 Rx calcium carbonate 500 mg calcium 500 mg PO QPM #30 tab 02/02/19 05/17/19 Rx (1,250 mg) tablet clopidogrel 75 mg tablet 75 mg PO QPM #30 tab 02/02/19 05/17/19 Rx glucosamine-chondroitin 250 mg-200 1 tab PO QAM #30 tab 02/02/19 05/17/19 Rx mg tablet metformin 1,000 mg tablet 1,000 mg PO BID #60 tab 02/02/19 05/17/19 Rx multivitamin tablet 1 tab PO QAM #30 tab 02/02/19 05/17/19 Rx triamterene 37.5 1 cap PO QAM #30 cap 02/02/19 05/17/19 Rx mg-hydrochlorothiazide 25 mg capsule losartan 50 mg tablet 50 mg PO QPM #90 tab 04/29/19 05/17/19 Rx omega 1-byp-dbn-fish oil [Fish Oil] 3 cap PO BID 05/17/19 05/17/19 History Allergies Allergy/AdvReac Type Severity Reaction Status Date / Time cephalexin [From Keflex] Allergy Severe Anaphylaxis Verified 05/17/19 12:51 amlodipine [From Norvasc] Allergy Intermediate legs/feet Verified 05/17/19 10:59 swelling lisinopril Allergy Intermediate "DISORIENTE Verified 05/17/19 10:59 D" Past Med/Surg History Medical History H/O diverticulitis of colon (Resolved) Subacute pancreatitis (Resolved) Diabetes mellitus, type 2 Fatty liver disease, nonalcoholic Femoral-popliteal bypass graft occlusion, right Hearing deficit Hyperlipidemia Hypertension Kidney stones On anticoagulant therapy plavix Peripheral arterial disease Testicular hypofunction Surgical History H/O hernia repair H/O knee surgery Cyst removed from R knee. History of colonoscopy History of endarterectomy 2010 @ [facility] Left common iliac with abdominal aortic endartectomy History of removal of cyst right knee History of right inguinal hernia repair History of tooth extraction all teeth removed Family History Mother Diabetes Cardiac disorder Father Alcoholism Coronary atherosclerosis Social History Preferred Language: Libyan Communication Ability: Effective Visual Impairment: No Limitations Hearing Ability: Normal Acoustical Installer Required: No Beliefs That Will Affect Care: None marital status: Current Living Situation: Spouse current occupational status: retired Feels Safe at Home: Yes Smoking Status: Former smoker Tobacco Type: cigarettes ; Second Hand Exposure: Yes ; Hx Alcohol Use: Yes Alcohol type: wine Hx Substance Use: No Childhood Exposure to Second-Hand Smoke: Yes Dental Care, Regularly: Yes Physical Activity Frequency: Does not Exercise Seatbelt Use: always Sunscreen Use: Yes Review of Systems See HPI for pertinent positives & negatives. and A total of 10 systems reviewed and were otherwise negative Physical Exam Vital Signs Vital Signs - 24 hr 05/17/19 13:45 05/17/19 13:53 05/17/19 14:00 Temperature 36.8 C Temperature Source Oral Sepsis Recent Fever Within 48 Hours No Sepsis Action Taken by Nursing No Action Required Pulse Rate 103 H 103 H 101 H Pulse Rate [Apical] Pulse Rate from SpO2 Sensor 102 H 101 H 102 H Pulse Rhythm Regular Pulse Rhythm [Apical] Pulse Strength Normal Respiratory Rate 22 15 14 Respiratory Effort / Characteristics Spontaneous Respiratory Depth Normal Respiratory Pattern Blood Pressure 145/80 H 155/80 H 132/80 Blood Pressure [Right Arm] Blood Pressure Mean 101 105 97 Blood Pressure Mean [Right Arm] Blood Pressure Position [Right Arm] Pulse Oximetry 98 98 97 Oxygen Delivery Method Nasal Cannula Nasal Cannula Nasal Cannula Oxygen Flow Rate 2 2 2 05/17/19 14:01 05/17/19 14:15 05/17/19 14:28 Temperature Temperature Source Sepsis Recent Fever Within 48 Hours Sepsis Action Taken by Nursing Pulse Rate 100 H Pulse Rate [Apical] 99 H Pulse Rate from SpO2 Sensor 100 H Pulse Rhythm Pulse Rhythm [Apical] Pulse Strength Respiratory Rate 9 L 19 Respiratory Effort / Characteristics Non-Labored Respiratory Depth Normal Respiratory Pattern Blood Pressure 123/77 Blood Pressure [Right Arm] 123/77 Blood Pressure Mean 92 Blood Pressure Mean [Right Arm] 92 Blood Pressure Position [Right Arm] Pulse Oximetry 98 96 95 Oxygen Delivery Method Room Air Nasal Cannula Nasal Cannula Oxygen Flow Rate 2 2 05/17/19 14:30 05/17/19 14:45 05/17/19 15:00 Temperature Temperature Source Sepsis Recent Fever Within 48 Hours Sepsis Action Taken by Nursing Pulse Rate 98 H 99 H 103 H Pulse Rate [Apical] Pulse Rate from SpO2 Sensor 98 H 98 H 102 H Pulse Rhythm Pulse Rhythm [Apical] Pulse Strength Respiratory Rate 13 14 13 Respiratory Effort / Characteristics Respiratory Depth Respiratory Pattern Blood Pressure 113/71 115/69 109/73 Blood Pressure [Right Arm] Blood Pressure Mean 85 84 85 Blood Pressure Mean [Right Arm] Blood Pressure Position [Right Arm] Pulse Oximetry 95 96 94 Oxygen Delivery Method Nasal Cannula Nasal Cannula Nasal Cannula Oxygen Flow Rate 2 2 2 05/17/19 15:15 05/17/19 15:30 05/17/19 15:45 Temperature Temperature Source Sepsis Recent Fever Within 48 Hours Sepsis Action Taken by Nursing Pulse Rate 101 H 107 H 102 H Pulse Rate [Apical] Pulse Rate from SpO2 Sensor 101 H 106 H 103 H Pulse Rhythm Pulse Rhythm [Apical] Pulse Strength Respiratory Rate 5 L 23 19 Respiratory Effort / Characteristics Respiratory Depth Respiratory Pattern Blood Pressure 107/62 101/60 102/55 L Blood Pressure [Right Arm] Blood Pressure Mean 77 73 70 Blood Pressure Mean [Right Arm] Blood Pressure Position [Right Arm] Pulse Oximetry 95 92 93 Oxygen Delivery Method Nasal Cannula Room Air Room Air Oxygen Flow Rate 2 05/17/19 16:00 05/17/19 16:15 05/17/19 16:30 Temperature Temperature Source Sepsis Recent Fever Within 48 Hours Sepsis Action Taken by Nursing Pulse Rate 98 H 107 H 110 H Pulse Rate [Apical] 105 H Pulse Rate from SpO2 Sensor 98 H 107 H 110 H Pulse Rhythm Pulse Rhythm [Apical] Regular Pulse Strength Respiratory Rate 14 17 17 Respiratory Effort / Characteristics Non-Labored Respiratory Depth Normal Respiratory Pattern Regular Blood Pressure 120/54 L 102/59 L 148/75 H Blood Pressure [Right Arm] 120/54 L Blood Pressure Mean 76 73 99 Blood Pressure Mean [Right Arm] 76 Blood Pressure Position [Right Arm] Sitting Pulse Oximetry 93 92 93 Oxygen Delivery Method Room Air Room Air Room Air Oxygen Flow Rate Constitutional: Vital signs reviewed. Eyes: Pupils are equal round reactive to light. Conjunctiva are noninjected. ENT: Pharynx is clear without erythema or exudate. Mucous membranes are moist. Neck supple without meningeal signs. Swelling of tongue. Respiratory: Clear to auscultation bilaterally. Breath sounds are equal bilaterally. No wheezing or strider. Cardiovascular: Tachycardic rate of 101 and rhythm. No rubs or gallops. GI: Soft, nondistended and nontender. Bowel sounds are present. Musculoskeletal: Diffuse erythema throughout extremities and truck. Paronychia right great toe with induration medially. Neurological: The patient is awake and alert. No focal deficits. Psychiatric: Normal affect. Course 1345: Past medical records reviewed. The patient was evaluated in room B11. A complete history and physical exam was performed. 1441: I checked don the patient and he is feeling better. Blood pressure and heart rate are improved but tongue is still swollen. 1600: I checked on the patient. He still has swelling to the tongue. I recommended he be hospitalized and he is agreeable. 1604: I spoke with Dr. Frazier- [place]. She will evaluated for further management. Administered Medications Clindamycin HCl (Cleocin) 150 mg PO Q6 ABIEL Stop: 05/27/19 17:59 Last Admin: 05/17/19 18:31 Dose: 150 mg Documented by: [id number] Enoxaparin Sodium (Lovenox) 40 mg SQ Q24H ABIEL Stop: 06/16/19 17:59 Last Admin: 05/17/19 18:32 Dose: 40 mg Documented by: [id number] Saccharomyces Boulardii (Florastor) 250 mg PO DAILY ABIEL Stop: 06/16/19 16:59 Last Admin: 05/17/19 18:11 Dose: 250 mg Documented by: [id number] Discontinued Medications Famotidine (Pepcid 20mg Iv Push) 20 mg in 5 mls @ 2.5 mls/min IV NOW STA Stop: 05/17/19 13:55 Last Admin: 05/17/19 14:10 Dose: 2.5 mls/min Documented by: [id number] Sodium Chloride (Nss) 500 mls @ 999 mls/hr IV .Q31M ABIEL Stop: 05/17/19 14:30 Last Infusion: 05/17/19 14:58 Dose: 0 mls/hr Documented by: [id number] Admin: 05/17/19 14:10 Dose: 999 mls/hr Documented by: [id number] Medical Decision Making Differential Diagnosis Differential Diagnosis: anaphylaxis, allergic reaction, angioedema, bronchospasm Medical Records Attestation: I reviewed the patient's medical records. Seen at PCP for paronychia of right toe and placed on cephalexin. They didnt feel there was nay induction for IND. Home Medications Current Medication List: was personally reviewed by me Laboratory Data Attestation: I reviewed the patient's lab results. Result diagrams: 05/17/19 15:15 05/17/19 15:15 Lab Results 05/17/19 05/17/19 Range/Units 15:15 15:15 WBC 15.36 H (4.8-10.8) K/uL RBC 5.06 (4.7-6.1) M/uL Hgb 14.9 (14.0-18.0) g/dL Hct 44.0 (42-52) % MCV 87.0 (80-100) fL MCH 29.4 (25-34) pg MCHC 33.9 (32-36) g/dL RDW Std Deviation 41.0 (36.4-46.3) fL RDW Coeff of Laci 12.9 (11.5-14.5) % Plt Count 202 (130-400) K/uL MPV 11.4 H (7.4-10.4) fL Immature Gran % (Auto) 0.4 % Neut % (Auto) 88.1 % Lymph % (Auto) 5.4 % [place] % (Auto) 5.6 % Eos % (Auto) 0.3 % Baso % (Auto) 0.2 % Immature Gran # (Auto) 0.06 H (0.00-0.02) K/uL Neut # (Auto) 13.53 H (1.4-6.5) K/uL Lymph # (Auto) 0.83 L (1.2-3.4) K/uL [place] # (Auto) 0.86 H (0.11-0.59) K/uL Eos # (Auto) 0.05 (0-0.5) K/uL Baso # (Auto) 0.03 (0-0.2) K/uL Sodium 136 (136-145) mmol/L Potassium 3.7 (3.5-5.1) mmol/L Chloride 103 (98-107) mmol/L Carbon Dioxide 23 (21-32) mmol/L Anion Gap 10.0 (3-11) BUN 12 (7-18) mg/dl Creatinine 1.17 (0.6-1.4) mg/dl Est Cr Clr Drug Dosing 78.6 ml/min Est GFR ( Amer) 74.9 Est GFR (Non-Af Amer) 64.6 BUN/Creatinine Ratio 10.1 (10-20) Glucose 160 H (70-99) mg/dl Calcium 9.0 (8.5-10.1) mg/dl Total Bilirubin 0.3 (0.2-1) mg/dl AST 57 H (15-37) U/L ALT 150 H (12-78) U/L Alkaline Phosphatase 80 (45-117) U/L Total Protein 6.4 (6.4-8.2) gm/dl Albumin 3.5 (3.4-5.0) gm/dl Globulin 2.8 (2.5-4.0) gm/dl Albumin/Globulin Ratio 1.2 (0.9-2) Imaging Data Radiologist's Impression: Radiology results as stated below per my review and the radiologist's interpretation: XR chest 1V portable HISTORY: Shortness of breath. COMPARISON: Chest 01/26/2019. FINDINGS: The heart is normal in size. No focal lung consolidations to suggest pneumonia. No evidence for pulmonary edema. No pleural effusions. No pneumothorax. Slight prominence of interstitial markings which appears u nchanged. This may be chronic. IMPRESSION: No significant change compared to the prior study. No acute process. Electronically signed by: Chan Salgado M.D. 05/17/2019 2:15 PM ECG Data Attestation: I personally reviewed and interpreted this ECG as follows: Indication: other (anaphylaxis ) Rate (beats per minute): 101 Rhythm: sinus tachycardia Findings: + T-wave inversion (Septal and anterior leads); no ST elevation Comparison ECG Date: from (01/2019) Change: no significant change Blood Pressure Blood Pressure Findings: Elevated blood pressure Blood Pressure Disposition: further management by hospitalist [facility] Narrative I did evaluate the patient as noted above. I did obtain history from the patient as well as EMS. The patient is presenting with anaphylaxis to Keflex. He was given Keflex for a right paronychia. He has persistent angioedema here. The patient was placed on a continuous metal sheet roller operator. I did order and personally review the patient's 12-lead EKG as described above. He has some T wave inversions but these are old and were present back in January. He denies any chest pain or shortness of breath. I did treat patient with Pepcid IV. He was also given normal saline IV. I did not give him any more epinephrine as the patient is somewhat tachycardic here and he did have an abnormal EKG. I did order and personally reviewed the images of the patient's chest x-ray as described above. There is no evidence of infiltrate. I did order and review the patient's blood work as noted in the electronic medical record. His white count is significantly elevated. Electrolytes are unremarkable. I did reassess the patient multiple times here. He did have very little change in his symptoms. He continued to have angioedema of the tongue. I therefore recommend hospitalization for close evaluation she did need for acute airway intervention arise. I did discuss the case with the hospitalist and hospice case manager. Impression & Plan Acute anaphylaxis, Angioedema, Paronychia Critical Care Time Total Critical Care Time: 35 I have personally spent approximately 35 minutes of critical care time in the direct management of this patient. This includes bedside care, interpretation of diagnostic studies, and testing, discussion with consultants, patient, and fa lurdes members, and other required patient management activities. These minutes are in excess of all separately billable procedures. Discharge Plan Visit Data *Final* Discharge Date/Time: 05/17/19 17:03 Chief Complaint: Allergic Reaction Stated Complaint: allergic reaction ED Provider: Alejandro Smith Discharge Problem: Acute anaphylaxis, Angioedema, Paronychia Patient Disposition: Admitted As Inpatient Discharge Instructions Interventions: ED Discharge Assessment Last Done: 05/17/19 17:03 Discharge Problem: Acute anaphylaxis Qualifiers: Encounter type: initial encounter Qualified Code(s): T78.2XXA - Anaphylactic shock, unspecified, initial encounter Angioedema Qualifiers: Encounter type: initial encounter Qualified Code(s): T78.3XXA - Angioneurotic edema, initial encounter The scribe's documentation has been prepared under my direction and personally reviewed by me in its entirety. I confirm that the note above accurately reflects all work, treatment, procedures, and medical decision making performed by me.
[2019-05-17] MEDS ORDERED: LOSARTAN POTASSIUM 50 MG TAB PO SCH (21:00)
[2019-05-17] MEDS ORDERED: CLOPIDOGREL BISULFATE 75 MG TAB PO SCH (21:00)
--- NOTE | 2019-05-17 21:04 | Pharmacy Report ---
Pharmacy Glycemic Short Note 2 - Date of Service May 17, 2019 - Glycemic Short BSG Results (Last 24 hours): 05/17/19 05/17/19 05/17/19 15:15 17:36 20:22 Glucose 160 H POC Glucose 152 H 258 H OUTPATIENT ANTIDIABETIC REGIMEN: * ASSESSMENT: * PLAN FOR INPATIENT GLYCEMIC CONTROL: * Hold outpatient oral diabetes medications * Basal insulin * Lantus [] units SQ BID * Bolus insulin * NovoLog per scale ACHS or Q6hrs while NPO * Goal Range: Low [] mg/dL - High [] mg/dL * Correction Factor: [] mg/dL/unit * Nutritional / Prandial insulin per carb ratio of 1 unit per [] grams CHO consumed PLAN FOR DISCHARGE: *
--- NOTE | 2019-05-17 21:08 | Pharmacy Report ---
Pharmacy Glycemic Short Note 2 - Date of Service May 17, 2019 - Glycemic Short BSG Results (Last 24 hours): 05/17/19 05/17/19 05/17/19 15:15 17:36 20:22 Glucose 160 H POC Glucose 152 H 258 H OUTPATIENT ANTIDIABETIC REGIMEN: * Metformin 1000mg BID ASSESSMENT: * Type 2 diabetic admitted with acute anaphylaxis likely related to Keflex. Went to PCP, received Epi, Benadryl, and Pepcid. Has underlying infection of toe previously treated with Keflex. Changed to Clindamycin on admission. PLAN FOR INPATIENT GLYCEMIC CONTROL: * Hold outpatient oral diabetes medications * Bolus insulin * NovoLog per scale ACHS * Goal Range: Low 120 mg/dL - High 160 mg/dL * Correction Factor: 30 mg/dL/unit * Nutritional / Prandial insulin per carb ratio of 1 unit per 10 grams CHO consumed
[2019-05-17] MEDS: INSULIN ASPART 100 UNITS/ML 3 ML PEN SC SCH (21:26)
[2019-05-17] MEDS: FAMOTIDINE 20 MG TAB PO SCH (21:29)
[2019-05-18] MEDS: CLINDAMYCIN HCL 150 MG CAP PO SCH (05:30)
[2019-05-18 06:32] LABS: Basophils # (auto) 0.01 K/uL (0-0.2); Basophils % (auto) 0.1 %; Hematocrit (blood only) 41.7 % (42-52); Hemoglobin 14.2 g/dL (14.0-18.0); Immature Granulocytes # (auto) 0.04 K/uL (0.00-0.02); Immature Granulocytes % (auto) 0.3 %; Lymphocytes # (auto) 1.23 K/uL (1.2-3.4); Mean Corpuscular Hemoglobin 29.3 pg (25-34); Mean Corpuscular Hgb Conc 34.1 g/dL (32-36); Mean Corpuscular Volume 86.2 fL (80-100); Mean Platelet Volume 11.3 fL (7.4-10.4); Monocytes # (auto) 0.74 K/uL (0.11-0.59); Monocytes % (auto) 5.4 %; Neutrophils # (auto) 11.72 K/uL (1.4-6.5); Neutrophils % (auto) 85.2 %; Platelet Count 224 K/uL (130-400); RDW Coefficient of Variation 12.8 % (11.5-14.5); RDW Standard Deviation 40.6 fL (36.4-46.3); Red Blood Count 4.84 M/uL (4.7-6.1); White Blood Count 13.74 K/uL (4.8-10.8)
[2019-05-18 06:56] LABS: Estimated Average Glucose 154 mg/dl
[2019-05-18 07:04] LABS: Albumin Level 3.6 gm/dl (3.4-5.0); BUN Creatinine Ratio 13.5 (10-20); Calcium 8.7 mg/dl (8.5-10.1); Creatinine Clr Calc Pharmacy 78.6 ml/min; Est GFR (African American) 74.9; Est GFR (Non-African American) 64.6
[2019-05-18 07:06] LABS: Albumin Globulin Ratio 1.1 (0.9-2); Bilirubin,Total 0.5 mg/dl (0.2-1); Globulin 3.3 gm/dl (2.5-4.0); Total Protein 6.9 gm/dl (6.4-8.2)
[2019-05-18] MEDS: INSULIN ASPART 100 UNITS/ML 3 ML PEN SC SCH (08:56)
[2019-05-18] MEDS: FAMOTIDINE 20 MG TAB PO SCH (08:57)
[2019-05-18] MEDS ORDERED: TRIAMTERENE/HCTZ 37.5/25MG CAP PO SCH (09:00)
[2019-05-18] MEDS: SACCHAROMYCES BOULARDII 250 MG CAP PO SCH (09:00)
[2019-05-18] MEDS ORDERED: ATORVASTATIN 40 MG TAB PO SCH (09:00)
[2019-05-18] MEDS ORDERED: ASPIRIN 81 MG ECTAB PO SCH (09:00)
--- NOTE | 2019-05-18 12:01 | Discharge Summary ---
Date of Service May 18, 2019 Admission HPI Per Admitting Provider Mr. Guzmán is a 68 y/o male with PMHx of Pre-diabetes, HTN, HLD, PAD who presented with acute anaphylaxis. Pt. states he developed right first toe swelling a few weeks ago - he has been using topical bacitracin ointment with no improvement. He was evaluated at his PCP office and prescribed a course of Keflex this morning. Pt. took dose of Keflex around 12 pm and stepped outside with his dog. He developed sneezing 5-10 minutes after taking dose of antibiotic followed by redness/swelling/itching of both arms that eventually spread to his neck. He had tongue swelling and mild shortness of breath. Pt. went directly to his PCPs office; he received Epinephrine, Benadryl and Pepcid. He was transferred to the ER via ambulance and has not required further treatment for anaphylaxis. Swelling is now improved, does have minor eyelid edema noted. Has h/o allergy to Lisinopril (confusion) and Norvasc (lower extremity edema); denies h/o antibiotic allergies. ER course: Pt. received Famotidine 20 mg IV push. CXR was negative. Labs showed a leukocytosis, otherwise negative. Will be admitted for observation status. Admission Exam Per Admitting Provider General: Resting comfortably HEENT: Bilateral upper eyelid edema noted; PERRLA with EOMI; [place] conjunctiva, MMM. No erythema of posterior pharynx Neck: Supple and nontender Cardiac: RRR Lungs: CTA bilaterally Abdomen: Bowel normoactive X 4; Nontender to palpation Extremities: Warm. No edema present Neuro: No focal weakness Skin: No rash Principal Diagnosis Acute Anaphylaxis Discharge Exam General: Resting comfortably HEENT: NC/AT; PERRLA with EOMI; [place] conjunctiva, MMM. No erythema of posterior pharynx Neck: Supple and nontender Cardiac: RRR Lungs: CTA bilaterally Abdomen: Bowel normoactive X 4; Nontender to palpation Extremities: Warm. No edema present Neuro: No focal weakness Skin: No rash; right great toe with erythema/swelling on lateral nail bed. Discharge Data Allergies Allergy/AdvReac Type Severity Reaction Status Date / Time cephalexin [From Keflex] Allergy Severe Anaphylaxis Verified 05/18/19 11:20 amlodipine [From Norvasc] Allergy Intermediate legs/feet Verified 05/24/19 10:23 swelling lisinopril Allergy Intermediate "DISORIENTE Verified 05/24/19 10:23 D" Consultations 05/17/19 16:06 ED Decision to Admit Stat Hospital Course (1) Acute anaphylaxis: Likely related to Keflex dose -- cephalosporins were added to allergy list. CXR was negative; labs showed leukocytosis. Received Epinephrine, Benadryl and Pepcid at PCP office. Converted abx to Clindamycin. Recommend outpatient follow up with bandage winding machine operator -- nurse navigator will schedule appt. (2) Angioedema: As noted above; resolved following treatment at PCP office. (3) Ingrown right big toenail: Prescribed Keflex by PCP, developed anaphylaxis. Started Clindamycin -- will need to complete 7 day course. Recommend daily probiotic. Recommend follow up with podiatry for evaluation - pt. declined appointment. Warm salt water soaks and compresses for pain relief prn. (4) Type 2 diabetes mellitus: A1C was 7.2 in November 2018. Held home Metformin; SSI coverage as inpt. A1C was 7.0. (5) Peripheral vascular disease: S/p fem-popliteal bypass graft on the right in 2010. Continued statin, aspirin and Plavix as prescribed. (6) Fatty infiltration of liver: Encouraged heart healthy diet and weight loss/exercise. (7) Hypercholesterolemia: Continued statin & aspirin as prescribed. (8) Essential hypertension: Continued Triamterene-HCTZ and Losartan as prescribed. (9) DVT prophylaxis: SCDs; Lovenox daily. Discharged to home on 05/18/19. Total Time Total Time Spent Total Time Spent (In Minutes): >30 minutes Total Time Includes: Examination of the Patient, Discharge Planning, Medication Reconciliation, Communication With Other Providers and Other Discharge Plan Discharge Items Patient Disposition: Home - Self-Care Reason For Visit: ANAPHYLAXIS Discharge Diagnosis: Acute Anaphylaxis related to Keflex Activity: As commented below Exercise/Sports: Gradually increase as tolerated Non-emergency contact: Primary Care Provider Call non-emergency contact if: you have any medication questions, your symptoms worsen and you have a fever Follow-up/Referrals: Brandie Vazquez DO [Primary Care Provider] - 05/24/19 10:15 am (Please, follow up at Dr. Vazquez's office with her associate, Mikaela Larios PA-C, on ThursdayMay 24 at 10:15 am. *If you need to change this appointment, call their office at [phone].) Nat Kiser MD [Physician] - 06/23/19 9:55 am (Please, follow up at [facility] All[facility] Medicine Office with Dr. Kiser on June 23 at 9:55 am. *The office is located in [address] of [facility]. This is the big building located next to this hospital. If you have any questions, call the office at [phone].) Diet: Heart Healthy Addtl Attending Provider Instructions: 1. Acute Anaphylaxis * Related to Keflex; this has been added to your allergy list. You should avoid taking Keflex in the future. * Please call your PCP or go to the ER if you develop recurrent hives, swelling, shortness of breath at home. * Please discuss obtaining a prescription for an EpiPen with your PCP. * It is recommended to follow up with an bandage winding machine operator to determine if you can tolerate other cephalosporins in the future - this appointment will be scheduled by our nurse navigator. 2. Ingrown right big toenail * Please take Clindamycin 300 mg twice daily for treatment of infection; you will need to complete a 7 day course. Please take a daily probiotic in the setting of antibiotics. * You can use warm salt water soaks and warm compresses for pain relief. 3. Please schedule a follow up appointment with your PCP in 1-2 weeks. Pending Studies at Discharge: No Stand-Alone Forms: [facility] Medications and DC Order Prescriptions: Continued losartan 50 mg tablet 50 mg PO QPM Qty: 90 RF: 2 aspirin [Aspirin Low Dose] 81 mg tablet,delayed release (DR/EC) 81 mg PO QAM Qty: 30 RF: 5 atorvastatin 40 mg tablet 40 mg PO QAM Qty: 30 RF: 5 calcium carbonate [Calcium 500] 500 mg calcium (1,250 mg) tablet 500 mg PO QPM Qty: 30 RF: 5 clopidogrel 75 mg tablet 75 mg PO QPM Qty: 30 RF: 5 glucosamine-chondroitin [Osteo Bi-Flex] 250-200 mg tablet 1 tab PO QAM Qty: 30 RF: 5 metformin 1,000 mg tablet 1,000 mg PO BID Qty: 60 RF: 5 multivitamin tablet 1 tab PO QAM Qty: 30 RF: 5 triamterene-hydrochlorothiazid [Dyazide] 37.5-25 mg capsule 1 cap PO QAM Qty: 30 RF: 5 omega 0-cul-llu-fish oil [Fish Oil] 1,000 mg (120 mg-180 mg) capsule 3 cap PO BID RF: 0 Discharge Orders: Discharge Order (Routine); Ordered 05/18/19 Ordered By: Chela Jones Admission Data Admit Date/Time: 05/17/19 16:45 Attending Provider: Kwan Mccann Admit Provider: Chela Jones Primary Care Provider: Brandie Vazquez Other Interventions: Discharge Summary Assessment (RN) Last Done: 05/18/19 10:30 DC Date/Time DO NOT enter until pt leaves facility: 05/18/19 11:10 Supervising Physician Co-Signing Physician Notes During my face to face encounter, I performed a physical examination and obtained a history on his current illness. I answered all of the patients questions and discussed the discharge plan. I reviewed above note and agree with it. Appears patient had an allergic reaction to his antibiotic. Patient is safe to be discharged.
== END 2019-05-18 11:10 | disposition home or self-care (01) ==
LOC: ED 13:34 → 4W 13:34